=== PATIENT | female | born 1975 | race Caucasian/White ===

== ENCOUNTER 2016-12-21 22:18 | Emergency (ER) | payer MEDICARE, MEDICAID ==
[~2016-12-21] VITALS: Ht 167.6 cm; Wt 163.3 kg
[~2016-12-21 22:18] MED LIST: ASPI-983 PO; ATOR20TA66 PO; HYDR-3812 PO; LISI-552 PO; METF500T4 PO
[2016-12-22] LABS: BILIRUBIN,URINE NEGATIVE (NEGATIVE); KETONES,URINE NEGATIVE (NEGATIVE); LEUKOCYTE ESTERASE ,URINE 2+ (NEGATIVE); NITRITE,URINE NEGATIVE (NEGATIVE); PH,URINE 5 (5-9); PROTEIN,URINE NEGATIVE (NEGATIVE); UROBILINOGEN,URINE NORMAL (NORMAL)
[2016-12-22 00:09] LABS: WBC,URINE 0-2 /HPF
[2016-12-22] MEDS ORDERED: KETOROLAC 30 MG/ML VIAL IVP STA (00:10)
[2016-12-22] MEDS ORDERED: ONDANSETRON 4 MG/2 ML (SDV) Z0FRAN IVP ONE (00:15)
[2016-12-22] MEDS ORDERED: PANTOPRAZOLE 40 MG/10 ML (PROTONIX) VIAL IV ONE (00:15)
[2016-12-22 00:31] LABS: BASOPHILS # (AUTO) 0.1 10^3/uL (0.0-0.1); BASOPHILS % (AUTO) 1 % (0-10); EOSINOPHILS # (AUTO) 0.7 10^3/uL (0.0-0.3); EOSINOPHILS % (AUTO) 6 % (0-10); LYMPHOCYTES # (AUTO) 4.5 X 10^3 (1.0-4.0); LYMPHOCYTES % (AUTO) 39 % (12-44); MEAN CORPUSCULAR HEMOGLOBIN 28 PG (25-34); MEAN CORPUSCULAR HGB CONC 33 G/DL (32-36); MEAN CORPUSCULAR VOLUME 84 FL (80-99); MEAN PLATELET VOLUME 9.8 FL (7.4-10.4); MONOCYTES % (AUTO) 9 % (0-12); NEUTROPHILS # (AUTO) 5.2 X 10^3 (1.8-7.8); NEUTROPHILS % (AUTO) 45 % (42-75); PLATELET COUNT 381 10^3/uL (130-400); RED BLOOD COUNT 4.69 10^6/uL (4.35-5.85); RED CELL DISTRIBUTION WIDTH 14.4 % (10.0-14.5); WHITE BLOOD COUNT 11.5 10^3/uL (4.3-11.0)
[2016-12-22 00:52] LABS: ALANINE AMINOTRANSFERASE 16 U/L (0-55); ALBUMIN 3.7 G/DL (3.2-4.5); AMYLASE 46 U/L (25-125); ANION GAP 10 MMOL/L (5-14); ASPARTATE AMINO TRANSFERASE 15 U/L (5-34); BILIRUBIN,TOTAL 0.3 MG/DL (0.1-1.0); BLOOD UREA NITROGEN 9 MG/DL (7-18); BUN/CREATININE RATIO 11; CALCIUM 9.4 MG/DL (8.5-10.1); CARBON DIOXIDE 22 MMOL/L (21-32); CHLORIDE 107 MMOL/L (98-107); CREATININE SERUM 0.85 MG/DL (0.60-1.30); GFR ESTIMATED > 60; GLUCOSE 110 MG/DL (70-105); LIPASE 33 U/L (8-78); POTASSIUM 4.1 MMOL/L (3.6-5.0); SODIUM 139 MMOL/L (135-145); TOTAL PROTEIN 6.9 G/DL (6.4-8.2)
[2016-12-22] MEDS ORDERED: PANT40TA2 PO (01:01)
[2016-12-22] MEDS ORDERED: ONDA4TAB8 PO (01:01)
[2016-12-22] MEDS ORDERED: HYOS0.1283 SL (01:01)
[2016-12-22] MEDS ORDERED: KETO10TA PO (01:01)
--- NOTE | 2016-12-22 01:01 | ED Abdominal Pain ---
General Chief Complaint: Abdominal/GI Problems Stated Complaint: ABD AND BACK PAIN Nursing Triage Note: PT TO ED 10 W/ S.O. FOR C/O BACK ET UPPER ABD PAIN ONSET X3YRS, WORSE THIS WEEK. REPORTS SHE HAS AN APPT W/ DR DE LA FUENTE BUT STATES SHE DOESN'T THINK SHE CAN WAIT. THIS IS PTS SECOND VISIT TO A [facility]. REPORTS SHE WENT TO [facility] BUT THOUGHT IS WAS "WEIRD" SO SHE DIDN'T STAY Sepsis Screen: No Definite Risk Source of Information: Patient History of Present Illness Time Seen By Provider: 23:45 Initial Comments C/O DIFFUSE UPPER ABDOMEN AND UPPER BACK PAIN--ONGOING FOR A FEW YEARS, AND IS GRADUALLY GETTING WORSE PAIN MOVES AROUND ALL ACROSS UPPER ABDOMEN AND BACK HAS ALOT OF BURNING IN EPIGASTRIC AND HAS INTERMITTENT CRAMPING IN UPPER ABDOMEN AND BACK + NAUSEA, NO VOMITING SLIGHT DIARRHEA OFF AND ON NO FEVER NO NEW URINARY SYMPTOMS--HAS CHRONIC PRESSURE AND URGENCY SYMPTOMS ARE WORSENED BY FOOD--ATE SCRAMBLED EGGS THIS AM, AND HAD A BURGER TONIGHT--STATES IT WAS ALREADY HURTING BEFORE SHE ATE, THEN GOT WORSE. ATE BURGER JUST PRIOR TO ARRIVAL ALSO WORSENED BY MOVEMENTS OR STANDING TOO LONG LMP . NO CONTROL. STATES SHE WENT TO [facility] 10/29/16 FOR THIS PROBLEM AND HAD LAB AND ULTRASOUND WHICH SHOWED GALLSTONES. SHE SAW OSIEL PETERSON IN FOLLOW UP 2 WEEKS AGO AND WAS REFERRED TO DR. DE LA FUENTE HAD AN APPOINTMENT LAST WEEK, BUT WAS CANCELLED BY DR. DE LA FUENTE'S OFFICE. PT HAS RESCHEDULED THE APPOINTMENT FOR Saturday12/24/16 PT HAS TAKEN IBUPROFEN AT [facility] TONIGHT AND IT HELPED STATES THIS IS NOT ANY DIFFERENT THAN WHAT SHE HAS EXPERIENCED IN THE PAST. TOLD RN THAT SHE WENT TO [facility], BUT LEFT AMA/LWBS Allergies and Home Medications Allergies Coded Allergies: No Known Drug Allergies (Unverified , 04/12/16) Home Medications Aspirin 81 Mg Tablet. #30 (Reported) Atorvastatin Calcium 20 Mg Tablet #30 (Reported) Hydrocodone/Acetaminophen 1 Each Tablet #20 1 EACH PO Q4H PRN PRN PAIN Prescribed by: MIC MOTA on 04/12/161954 Hyoscyamine Sulfate 0.125 Mg Tab.subl #10 1-2 TAB SL Q4H Prescribed by: PALMER EMERY on 12/22/16100 Ketorolac Tromethamine 10 Mg Tablet #15 10 MG PO Q6H Prescribed by: PALMER MEERY on 12/22/16100 Lisinopril 20 Mg Tablet #30 (Reported) Metformin HCl 500 Mg Tablet #60 (Reported) Ondansetron 4 Mg Tab.rapdis #10 4 MG PO Q4H Prescribed by: PALMER EMERY on 12/22/16100 Pantoprazole Sodium 40 Mg Tablet.dr #15 40 MG PO DAILY Prescribed by: PALMER EMERY on 12/22/16100 Review of Systems Constitutional: no symptoms reported Respiratory: No Symptoms ReportedDenies Orthopnea, Denies Shortness of Air Cardiovascular: No Symptoms ReportedDenies Chest Pain Gastrointestinal: See HPI Abdominal Pain Diarrhea NauseaDenies Poor Appetite, Denies Poor Fluid Intake, Denies Vomiting Genitourinary: Other (CHRONIC PRESSURE AND URGENCY) Musculoskeletal: see HPI back pain Skin: no symptoms reported Psychiatric/Neurological: No Symptoms Reported Endocrine: No Symptoms Reported Hematologic/Lymphatic: No Symptoms Reported Past Pyltjdx-Wgxkbm-Nmswcn Hx Patient Social History Alcohol Use: Denies Use Recreational Drug Use: No Smoking Status: Current Everyday Smoker (1 PPD) Type Used: Cigarettes Recent Foreign Travel: No Contact w/Someone Who Travel: No Recent Infectious Disease Expo: No Recent Hopitalizations: No Seasonal Allergies Seasonal Allergies: No Surgeries HX 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) Surgeries: Bladder Surgery Respiratory Hx Respiratory Disorders: Yes (SARCOIDOSIS) Cardiovascular Hx Cardiac Disorders: Yes Cardiac Disorders: High Cholesterol, Hypertension Neurological Hx Neurological Disorders: No Reproductive System Hx Reproductive Disorders: No Genitourinary Hx Genitourinary Disorders: Yes Genitourinary Disorders: Bladder Infection, UTI (peds) Gastrointestinal Hx Gastrointestinal Disorders: No Musculoskeletal Hx Musculoskeletal Disorders: No Endocrine Hx Endocrine Disorders: Yes (MORBID OBESITY) Endocrine Disorders: Diabetes, Non-Insulin dep HEENT HX ENT Disorders: No Cancer Hx Cancer: No Psychosocial Hx Psychiatric Problems: No Integumentary HX Skin/Integumentary Disorder: Yes (SARCOIDOSIS) Physical Exam Vital Signs VS - Last 72 Hours, by Label 12/21/16 12/22/16 23:24 01:05 Temp 97.5 Pulse 85 79 Resp 20 20 B/P 140/86 Pulse Ox 99 99 O2 Delivery Room Air Capillary Refill : Less Than 3 Seconds General Appearance: no apparent distress obese (MORBODLY OBESE) Neck: normal inspection Respiratory: normal breath sounds no respiratory distress no accessory muscle use Cardiovascular: regular rate, rhythm no murmur Gastrointestinal: normal bowel sounds softNo guarding, No rebound, tenderness (DIFFUSE UPPER ABDOMINAL TENDERNESS. 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 no motor/sensory deficits alert normal mood/affect oriented x 3 Skin: normal color warm/dry Focused Exam Lactic Acid Level Laboratory Tests Test 12/22/16 00:20 Alanine Aminotransferase (ALT/SGPT) 16U/L (0-55) Albumin 3.7G/DL (3.2-4.5) Alkaline Phosphatase 69U/L (40-136) Amylase Level 46U/L (25-125) Anion Gap 10MMOL/L (5-14) Aspartate Amino Transf (AST/SGOT) 15U/L (5-34) BUN/Creatinine Ratio 11 Blood Urea Nitrogen 9MG/DL (7-18) Calcium Level 9.4MG/DL (8.5-10.1) Carbon Dioxide Level 22MMOL/L (21-32) Chloride Level 107MMOL/L (98-107) Creatinine 0.85MG/DL (0.60-1.30) Estimat Glomerular Filtration Rate > 60 Glucose Level 110MG/DL (70-105) H Lipase 33U/L (8-78) Potassium Level 4.1MMOL/L (3.6-5.0) Sodium Level 139MMOL/L (135-145) Total Bilirubin 0.3MG/DL (0.1-1.0) Total Protein 6.9G/DL (6.4-8.2) Progress/Results/Core Measures Results/Orders Lab Results Laboratory Tests Test 12/21/16 23:37 12/22/16 00:20 Range/Units Ur Tricyclic Antidepressants Screen NEGATIVE NEGATIVE Urine Amphetamines Screen NEGATIVE NEGATIVE Urine Bacteria TRACE /HPF Urine Barbiturates Screen NEGATIVE NEGATIVE Urine Benzodiazepines Screen NEGATIVE NEGATIVE Urine Bilirubin NEGATIVE NEGATIVE Urine Cannabinoids Screen NEGATIVE NEGATIVE Urine Casts NONE /LPF Urine Clarity CLEAR Urine Cocaine Screen NEGATIVE NEGATIVE Urine Color YELLOW Urine Crystals NONE /LPF Urine Culture Indicated NO Urine Glucose (UA) 2+ H NEGATIVE Urine Ketones NEGATIVE NEGATIVE Urine Leukocyte Esterase 2+ H NEGATIVE Urine Methadone Screen NEGATIVE NEGATIVE Urine Methamphetamines Screen NEGATIVE NEGATIVE Urine Mucus SMALL H /LPF Urine Nitrite NEGATIVE NEGATIVE Urine Opiates Screen NEGATIVE NEGATIVE Urine Oxycodone Screen NEGATIVE NEGATIVE Urine Phencyclidine Screen NEGATIVE NEGATIVE Urine Test NEGATIVE NEGATIVE Urine Propoxyphene Screen NEGATIVE NEGATIVE Urine Protein NEGATIVE NEGATIVE Urine RBC NONE /HPF Urine RBC (Auto) NEGATIVE NEGATIVE Urine Specific [place] 1.025 H 1.016-1.022 Urine Squamous Epithelial Cells 10-25 H /HPF Urine Urobilinogen NORMAL NORMAL MG/DL Urine WBC 0-2 /HPF Urine pH 5 5-9 Alanine Aminotransferase (ALT/SGPT) 16 0-55 U/L Albumin 3.7 3.2-4.5 G/DL Alkaline Phosphatase 69 40-136 U/L Amylase Level 46 25-125 U/L Anion Gap 10 5-14 MMOL/L Aspartate Amino Transf (AST/SGOT) 15 5-34 U/L BUN/Creatinine Ratio 11 Basophils # (Auto) 0.1 0.0-0.1 10^3/uL Basophils (%) (Auto) 1 0-10 % Blood Urea Nitrogen 9 7-18 MG/DL Calcium Level 9.4 8.5-10.1 MG/DL Carbon Dioxide Level 22 21-32 MMOL/L Chloride Level 107 98-107 MMOL/L Creatinine 0.85 0.60-1.30 MG/DL Eosinophils # (Auto) 0.7 H 0.0-0.3 10^3/uL Eosinophils (%) (Auto) 6 0-10 % Estimat Glomerular Filtration Rate > 60 Glucose Level 110 H 70-105 MG/DL Hematocrit 39 35-52 % Hemoglobin 13.1 11.5-16.0 G/DL Lipase 33 8-78 U/L Lymphocytes # (Auto) 4.5 H 1.0-4.0 X 10^3 Lymphocytes (%) (Auto) 39 12-44 % Mean Corpuscular Hemoglobin 28 25-34 PG Mean Corpuscular Hemoglobin Concent 33 32-36 G/DL Mean Corpuscular Volume 84 80-99 FL Mean Platelet Volume 9.8 7.4-10.4 FL Monocytes # (Auto) 1.0 0.0-1.0 X 10^3 Monocytes (%) (Auto) 9 0-12 % Neutrophils # (Auto) 5.2 1.8-7.8 X 10^3 Neutrophils (%) (Auto) 45 42-75 % Platelet Count 381 130-400 10^3/uL Potassium Level 4.1 3.6-5.0 MMOL/L Red Blood Count 4.69 4.35-5.85 10^6/uL Red Cell Distribution Width 14.4 10.0-14.5 % Sodium Level 139 135-145 MMOL/L Total Bilirubin 0.3 0.1-1.0 MG/DL Total Protein 6.9 6.4-8.2 G/DL White Blood Count 11.5 H 4.3-11.0 10^3/uL My Orders Orders-PALMER EMERY DO Drug Screen Stat (Urine) (12/21/16 23:44) Hcg,Qualitative Urine (12/21/16 23:44) Ua Culture If Indicated (12/21/16 23:44) Saline Lock/Iv-Start (12/22/16 00:10) Amylase (12/22/16 00:10) Cbc With Automated Diff (12/22/16 00:10) Comprehensive Metabolic Panel (12/22/16 00:10) Lipase (12/22/16 00:10) Ondansetron Injection (Zofran Injectio (12/22/16 00:15) Ketorolac Injection (Toradol Injection) (12/22/16 00:10) Pantoprazole Injection (Protonix Injecti (12/22/16 00:15) Medications Given in ED Current Medications Medications Dose Ordered Sig/Ra Route Start Time Stop Time Status Last Admin Dose Admin Ondansetron HCl 4 mg ONCE ONCE IVP 12/22/16 00:15 12/22/16 00:16 DC 12/22/16 00:23 4 MG Pantoprazole 40 mg ONCE ONCE IV 12/22/16 00:15 12/22/16 00:16 DC 12/22/16 00:24 40 MG Vital Signs/I&O Vital Sign - Last 12Hours 12/21/16 12/22/16 23:24 01:05 Temp 97.5 Pulse 85 79 Resp 20 20 B/P 140/86 Pulse Ox 99 99 O2 Delivery Room Air Blood Pressure Mean: 104 Progress Note : Progress Note ALL SYMPTOMS RESOLVED WITH MEDICATIONS Departure Impression Impression: Primary Impression: Upper abdominal pain Additional Impression: REPORTED HISTORY OF GALLSTONES Disposition: 01 HOME, SELF-CARE Condition: Improved Departure-Patient Inst. Referrals: REED PETERSON (PCP/Family) Primary Care Physician Patient Instructions: Acute Abdomen (Belly Pain), Adult (DC), Gallstones (DC) Add. Discharge Instructions: CLEAR LIQUIDS TOMORROW, NO FOOD. --WATER, BROTH, JELLO, GATORADE IF YOU ARE BETTER ON SATURDAY, YOU MAY ADD BRATS DIET TO CLEAR LIQUIDS--BANANAS, RICE, APPLESAUCE, TOAST, SALTINES KEEP YOUR APPOINTMENT WITH DR. DE LA FUENTE ON SATURDAY SCHEDULED All discharge instructions reviewed with patient and/or family. Voiced understanding. Scripts Ketorolac Tromethamine 10 Mg Fpvewf69 Mg PO Q6H Pain #15 TAB Prov:PALMER EMERY DO 12/22/16 Hyoscyamine Sulfate (Levsin-Sl)0.125 Mg Tab.subl1-2 Tab SL Q4H Abdominal Pain # 10 TAB Prov:PALMER EMERY DO 12/22/16 Pantoprazole Sodium (Protonix)40 Mg Tablet.dr40 Mg PO DAILY #15 TAB Prov:PALMER EMERY DO 12/22/16 Ondansetron (Zofran Odt)4 Mg Tab.rapdis4 Mg PO Q4H Nausea/Vomiting #10 TAB Prov:PALMER EMERY DO 12/22/16 PALMER EMERY DO Dec 22, 2016 01:01
[2016-12-22 01:05] VITALS: BP 131/88
== END 2016-12-22 01:05 | disposition home or self-care (01) ==
LOC: EDUNIT# 22:18 → ER 22:20
DX: R10.10 Upper abdominal pain, unspecified (principal); I10 Essential (primary) hypertension; E11.9 Type 2 diabetes mellitus without complications; E66.01 Morbid (severe) obesity due to excess calories; F17.210 Nicotine dependence, cigarettes, uncomplicated; Z79.82 Long term (current) use of aspirin; Z79.84 Long term (current) use of oral hypoglycemic drugs; Z79.899 Other long term (current) drug therapy
CPT/HCPCS: 36415; 80053; 80306; 81000; 82150; 83690; 84703; 85025; 96365; 96375

== ENCOUNTER 2016-12-26 05:37 | Outpatient (CLI) | payer MEDICARE, MEDICAID ==
[~2016-12-26] VITALS: Ht 167.6 cm; Wt 171.0 kg
[~2016-12-26 05:37] MED LIST changes: +HYOS0.1283 SL; +KETO10TA PO; +ONDA4TAB8 PO; +PANT40TA2 PO
[2016-12-28] MEDS ORDERED: HYDR-3812 PO (15:28)
[2016-12-28] MEDS ORDERED: DOCU-143 PO (15:28)
== END 2016-12-26 15:40 ==
LOC: PREOP 05:37
PROVIDERS: ATTEND Surgery
DX: Z01.818 Encounter for other preprocedural examination (principal); K80.20 Calculus of gallbladder without cholecystitis without obstruction

== ENCOUNTER 2016-12-28 11:38 | Day surgery (SDC) | payer MEDICARE, MEDICAID ==
[~2016-12-28] VITALS: Ht 167.6 cm; Wt 171.0 kg
[2016-12-28] MEDS: LACTATED RINGERS 1,000 ML IV PRN ×3 (12:00→16:11)
[2016-12-28] MEDS ORDERED: ceFAZolin 2 GM/NS 50 ML IV ONE (12:15)
[2016-12-28] MEDS ORDERED: ceFAZolin 1 GM/NS 50 ML IVPB IV ONE ×2 (12:15)
[2016-12-28 12:22] VITALS: BP 156/76
[2016-12-28] MEDS ORDERED: ceFAZolin INJECTION 3,000 MG in NS (IVPB) 100 ML IV ONE (12:30)
[2016-12-28] MEDS ORDERED: BUPIVACAINE 0.5% 30 ML (SENSORCAINE) VIAL ONE (12:44)
[2016-12-28] MEDS ORDERED: LIDOCAINE 1% INJ 20 ML (XYLOCAINE) VIAL ONE (12:44)
--- NOTE | 2016-12-28 13:05 | Progress Note-Pre Operative ---
Pre-Operative Progress Note H&P Reviewed The H&P was reviewed, patient examined and no changes noted. Date H&P Reviewed: Dec 28, 2016 Time H&P Reviewed: 13:05 Pre-Operative Diagnosis: SYMPTOMATIC CHOLELITHIASIS MELODY DE LA FUENTE DO Dec 28, 2016 13:05
[2016-12-28] MEDS ORDERED: LIDOCAINE PF 2% 10 ML (XYLOCAINE) AMP ONE (13:07)
[2016-12-28] MEDS ORDERED: ROCURONIUM 50 MG/5 ML (ZEMURON) VIAL IV ONE ×2 (13:07→13:52)
[2016-12-28] MEDS ORDERED: ONDANSETRON 4 MG/2 ML (SDV) Z0FRAN ONE ×2 (13:07→16:02)
[2016-12-28] MEDS ORDERED: LACTATED RINGERS 1,000 ML IV ONE ×3 (13:07→16:08)
[2016-12-28] MEDS ORDERED: proPOfol 200 MG/20 ML (DIPRIVAN) VIAL IV ONE (13:07)
[2016-12-28] MEDS ORDERED: SUCCINYLCHOLINE INJ 100 MG/5 ML SYR ONE (13:07)
[2016-12-28] MEDS ORDERED: fentaNYL INJECTION 100 MCG/2 ML AMP ONE ×2 (13:08→15:28)
[2016-12-28] MEDS ORDERED: MIDAZOLAM 2 MG/2 ML (VERSED) VIAL ONE (13:08)
[2016-12-28] MEDS ORDERED: SEVOFLURANE (ULTANE) 15 ML INHAL SOLN ONE ×4 (14:18→15:42)
[2016-12-28] MEDS ORDERED: morphine INJ 10 MG/ML 1ML (SYR OR VIAL) ONE (14:43)
[2016-12-28] MEDS ORDERED: NEOSTIGMINE (BLOXIVERZ ) 1 MG/1ML 10 ML VIAL ONE (15:04)
[2016-12-28] MEDS ORDERED: GLYCOPYRROLATE 0.2 MG/ML (ROBINUL) 2 ML VIAL ONE (15:04)
--- NOTE | 2016-12-28 15:12 | Diagnostic Imaging Report ---
Indication: Right upper quadrant pain. Discussion: Fluoroscopic support was provided during intraoperative cholangiogram. There is progression of contrast into the duodenum. The common bile duct is not dilated. Please see the operative report for full detail. Fluoroscopy time: 17 seconds. Contrast: 5 mL Omnipaque 300. Impression: 1. Intraoperative cholangiogram. Dictated by: Dictated on workstation # [id number]
[2016-12-28] MEDS ORDERED: KETOROLAC 30 MG/ML VIAL ONE (15:22)
[2016-12-28] MEDS ORDERED: HYDR-3812 PO (15:28)
[2016-12-28] MEDS ORDERED: DOCU-143 PO (15:28)
--- NOTE | 2016-12-28 15:29 | Discharge Inst-Simple/Standard ---
Discharge Inst-Standard Discharge Medications New, Converted or Re-Newed RX: RX on Chart Patient Instructions/Follow Up Plan of Care/Instructions/FU: 2 WEEKS SUDHAKAR Activity as Tolerated: No Discharge Diet: Regular Diet Other Inst to Patient Follow up Appt: Make appointment for 2 weeks. Instructions: No lifting greater than 10 pounds. No strenuous activity. May shower in 24 hours, no tub bath or soaking. Use incentive spirometer at home as directed. No Smoking Skin/Wound Care: May remove bandages 24 HOURS. You need to leave the white strips over incision on they will fall off on their own. Symptoms to Report: Appetite Changes, Extremity Discoloration, Numbness/Tingling, Swelling Increased , Bleeding Excessive, Eyesight Changes, Pain Increased, Urine Color Change, Constipation(Persistent), Fever over 101 degree F, Pain/Pressure in chest, Urinating Difficulty, Cough Up/Vomit Blood, Heart Beat Irreg/Pounding, Pain/ Pressure in jaw, Vaginal Bleeding Increase, Cramps in feet or legs, Lightheadedness, Pain/Pressure in shoulder, Diarrhea(Persistent), Memory Changes Suddenly, Questions/Concerns, Weight gain consecutive days, Dizziness/ Fainting, Nausea/Vomiting, Shortness of Breath, Weight gain over 2 pounds. If eyes or skin turn yellow notify physician. If questions or concerns contact your physician Or seek help at emergency department. MELODY DE LA FUENTE DO Dec 28, 2016 15:29
[2016-12-28] MEDS ORDERED: HYDROcodone/APAP 5 MG/325 MG (LORTAB) TAB PO PRN (15:30)
[2016-12-28] MEDS ORDERED: ONDANSETRON 4 MG/2 ML (SDV) Z0FRAN IVP PRN (15:45)
[2016-12-28] MEDS ORDERED: MEPERIDINE (DEMEROL) INJ 50 MG/ML IVP PRN (15:45)
[2016-12-28 15:50] VITALS: BP 106/57
[2016-12-28] MEDS ORDERED: RT-ALBUTEROL SULF 2.5 MG/3 ML PRE-MIX VIAL ONE (15:56)
[2016-12-28] MEDS: morphine INJ 10 MG/ML 1ML (SYR OR VIAL) IVP PRN ×3 (15:57→16:17)
[2016-12-28] MEDS ORDERED: RT-ALBUTEROL SULF 2.5 MG/3 ML PRE-MIX VIAL INH ONE (16:15)
[2016-12-28 17:17] VITALS: BP 109/55
[2016-12-28 18:00] VITALS: BP 109/55
--- OUTSIDE RECORDS SUMMARY | 2016-12-30 12:31 | XMS REPORT ---
Author Author REED PETERSON [facility] eClinicalWorks Address Unknown Phone Unavailable Care Team Providers Care Sandwich Machine Operator Name Role Phone REED PETERSON CP Unavailable Allergies, Adverse Reactions, Alerts Substance Reaction Event Type N.K.D.A. Info Not Available Non Drug Allergy Problems Problem Type Condition Code Onset Dates Condition Status Problem Encounter for dental examination Z01.20 Active Problem Type 2 diabetes mellitus without complication E11.9 Active Problem Bilateral carpal tunnel syndrome G56.03 Active Assessment Type 2 diabetes mellitus without complication E11.9 Active Assessment Bilateral carpal tunnel syndrome G56.03 Active Problem Essential hypertension, hypertension with unspecified goal I10 Active Problem Arthritis M19.90 Active Medications Medication Code System Code Instructions Start Date End Date Status Dosage ProAir HFA [facility] [address]-05 108 (90 Base) MCG/ACT Inhalation every 4 hrs 2 puffs as needed Lipitor [facility] [address]-04 20 mg Orally Once a day 1 tablet Naproxen [facility] [address]-54 500 MG Orally every 12 hrs Jul 24, 2016 1 tablet as needed Lisinopril [facility] [address]-72 20 mg Orally Once a day 1 tablet Test strips [facility] 0 ... Once a day January 11, 2016 as directed Aspirin EC [facility] [id number] 81 MG TAKE ONE (1) TABLET BY MOUTH DAILY... Nasonex [facility] 97866951815 50 MCG/ACT 2 sprays in each nostril Once a day Nasally Metformin HCl [facility] [address]-21 500 MG Orally Twice a day 1 tablet with meals Procedures Procedure Coding System Code Date [facility] VISIT ESTABLISHED PATIENT CPT-4 G0467 Jul 24, 2016 Office Visit, Est Pt., Level 3 CPT-4 63862 Jul 24, 2016 GLYCATED HEMOGLOBIN TEST CPT-4 47538 Jul 24, 2016 Vital Signs Date/Time: Jul 24, 2016 Cardiac Monitoring Heart Rate 80 bpm Weight 354 lbs Height 66 in BMI 57.13 Index Blood Pressure Diastolic 78 mmHg Blood Pressure Systolic 128 mmHg Results Name Result Date Reference Range Unit Abnormality Flag A1C (IN HOUSE) ----A1C IN HOUSE 6.0 20160724 4.3 - 5.6 % ----Previous A1c 6.1 [id number] ----Lot [id number] ----Exp date [id number] Summary Purpose eClinicalWorks Submission
--- OUTSIDE RECORDS SUMMARY | 2016-12-30 12:31 | XMS REPORT ---
Author Author REED PETERSON Organization eClinicalWorks Address Unknown Phone Unavailable Care Team Providers Care Resident Care Aid Name Role Phone REED PETERSON CP Unavailable Allergies No Known Allergies Problems Problem Type Condition Code Onset Dates Condition Status Problem Essential hypertension, hypertension with unspecified goal I10 Active Problem Arthritis M19.90 Active Problem Type 2 diabetes mellitus without complication E11.9 Active Medications No Known Medications Vital Signs Date/Time: January 20, 2016 Blood Pressure Diastolic 80 mmHg Blood Pressure Systolic 122 mmHg Height 66 in Results No Known Results Summary Purpose eClinicalWorks Submission
--- OUTSIDE RECORDS SUMMARY | 2016-12-30 12:31 | XMS REPORT ---
Author Author REED PETERSON Organization [employer] Address Unknown Phone Unavailable Care Team Providers Care Fireworks Maker Name Role Phone REED PETERSON CP Unavailable Allergies No Known Allergies Problems Problem Type Condition Code Onset Dates Condition Status Problem Type 2 diabetes mellitus without complication E11.9 Active Problem Essential hypertension, hypertension with unspecified goal I10 Active Problem Encounter for dental examination Z01.20 Active Problem Arthritis M19.90 Active Medications No Known Medications Results No Known Results Summary Purpose eClinicalWorks Submission
--- OUTSIDE RECORDS SUMMARY | 2016-12-30 12:32 | XMS REPORT ---
Author Author REED PETERSON Organization [employer] Address Unknown Phone Unavailable Care Team Providers Care Front End Java Developer Name Role Phone REED PETERSON CP Unavailable Allergies No Known Allergies Problems Problem Type Condition Code Onset Dates Condition Status Problem Type 2 diabetes mellitus without complication E11.9 Active Problem Essential hypertension, hypertension with unspecified goal I10 Active Problem Encounter for dental examination Z01.20 Active Problem Arthritis M19.90 Active Medications No Known Medications Vital Signs Date/Time: February 06, 2016 Blood Pressure Diastolic 60 mmHg Blood Pressure Systolic 100 mmHg Height 66 in Results No Known Results Summary Purpose eClinicalWorks Submission
--- OUTSIDE RECORDS SUMMARY | 2016-12-30 12:32 | XMS REPORT ---
Author Author RAINER CASTRO [facility] eClinicalWorks Address Unknown Phone Unavailable Care Team Providers Care Train Controller Name Role Phone RAINER CASTRO Unavailable Allergies No Known Allergies Problems Problem Type Condition Code Onset Dates Condition Status Problem Essential hypertension, hypertension with unspecified goal I10 Active Problem Arthritis M19.90 Active Problem Type 2 diabetes mellitus without complication E11.9 Active Medications No Known Medications Results No Known Results Summary Purpose eClinicalWorks Submission
--- OUTSIDE RECORDS SUMMARY | 2016-12-30 12:32 | XMS REPORT ---
Author Author REED PETERSON Organization eClinicalWorks Address Unknown Phone Unavailable Care Team Providers Care Control Operator Name Role Phone REED PETERSON CP Unavailable Allergies No Known Allergies Problems Problem Type Condition Code Onset Dates Condition Status Problem Essential hypertension, hypertension with unspecified goal I10 Active Problem Arthritis M19.90 Active Problem Type 2 diabetes mellitus without complication E11.9 Active Medications No Known Medications Vital Signs Date/Time: January 24, 2016 Blood Pressure Systolic 102 mmHg Weight 362.8 lbs Height 66 in BMI 58.55 Index Blood Pressure Diastolic 72 mmHg Results No Known Results Summary Purpose eClinicalWorks Submission
--- OUTSIDE RECORDS SUMMARY | 2016-12-30 12:32 | XMS REPORT ---
Author Author REED PETERSON Organization eClinical[employer] Address Unknown Phone Unavailable Care Team Providers Care Program Or Project Administrator Name Role Phone REED PETERSON CP Unavailable Allergies No Known Allergies Problems Problem Type Condition Code Onset Dates Condition Status Problem Type 2 diabetes mellitus without complication E11.9 Active Problem Essential hypertension, hypertension with unspecified goal I10 Active Problem Encounter for dental examination Z01.20 Active Problem Arthritis M19.90 Active Medications Medication Code System Code Instructions Start Date End Date Status Dosage Lipitor [facility] [address]-01 20 mg Orally Once a day 1 tablet Sprintec 28 [facility] [address]-13 0.25-35 MG-MCG Orally Once a day January 17, 2016 1 tablet Metformin HCl [facility] [address]-45 500 MG Orally Twice a day 1 tablet with meals Results No Known Results Summary Purpose eClinicalWorks Submission
--- NOTE | 2016-12-30 12:45 | OPERATIVE REPORT ---
PROCEDURE PHYSICIAN: MELODY DE LA FUENTE DATE OF PROCEDURE: 12/28/2016 PREOPERATIVE DIAGNOSIS: Symptomatic cholelithiasis. POSTOPERATIVE DIAGNOSIS: Symptomatic cholelithiasis. PROCEDURE: Laparoscopic cholecystectomy with intraoperative cholangiogram. SURGEON: Mena. AIRFIELD DEFENCE GUARD: Dr. Leiv, assist in retraction, dissection, and closure. ANESTHESIA: General. ESTIMATED BLOOD LOSS: Minimal. COMPLICATIONS: None. INDICATIONS: The patient is a 41-year-old female who has been having right upper quadrant abdominal pain. She had a gallbladder ultrasound demonstrating a large amount of gallstones. She understands the risks and benefits of the procedure and wishes to proceed with the procedure. She has a BMI of 60.8 kg per meter sq. The patient was taken to the operating suite. She was prepped and draped with sterile technique after general anesthesia and endotracheal tube placed. Timeout was performed. Allison technique was used to enter the abdomen just superior to the umbilicus. Cautery dissection was taken down to the fascia, which was then scored, grasped and elevated. An 0-Vicryl suture was placed in a [id number] fashion and the balloon trocar was placed. Pneumoperitoneum was achieved. Under direct visualization of the laparoscope, a 5 mm trocar was placed in the subxiphoid region and two 5-mm trocars were placed in the right upper quadrant. Due to body habitus and exposure a 3rd 5 mm trocar had to be placed in the right upper quadrant to assist further assist with retraction. There were some adhesions to the gallbladder which were taken down with a [place]. The cystic duct and cystic artery were then began to be dissected out. Once the cystic duct was dissected out a clip was placed on the distal portion of the cystic duct and this was then partially transected. An arrow catheter was inserted and cholangiogram was then performed. There were no filling defects. There were no stones within the duct. The duct was a small diameter. The catheter was removed. Clips were placed on proximal portion. This was then transected. The cystic artery was further dissected out. Clips were placed on proximal and distal portion and this was then transected. Hook cautery was then used to dissect out the gallbladder from the gallbladder fossa which was fairly intrahepatic gallbladder. Once removed, it was placed in an Endobag and removed through the 12 mm trocar. Hemostasis had been achieved. Copious amounts of irrigation were used to irrigate the abdomen. There was still a little bit of a defect at the umbilical incision; therefore, an Endo Close with 0 Vicryl were then used to further close this. Once closed, all the incisions were irrigated and then the skin was closed using 4-0 Monocryl in a subcuticular fashion. The area was then washed and dried and Mastisol and Steri-Strips were applied. Sterile bandages were applied. The patient tolerated the procedure well without complication. She was taken to recovery room in stable condition Job ID: [id number] Dictated Date: 12/28/2016 16:22:45 Worm Raiser Date: 12/30/2016 12:33:43 / phuc
== END 2016-12-28 18:04 | disposition home or self-care (01) ==
LOC: DELPENDDIS → SDC 11:38 → DELPENDDIS 17:30 → SDC 18:04
PROVIDERS: ATTEND Surgery
DX: K80.10 Calculus of gallbladder with chronic cholecystitis without obstruction (principal)
CPT/HCPCS: 82962; 84703; 87081; 88304; 88305; 94664

== ENCOUNTER 2018-02-16 14:16 | Emergency (ER) | payer MEDICARE, MEDICAID ==
[~2018-02-16] VITALS: Ht 167.6 cm; Wt 181.4 kg
[~2018-02-16 14:16] MED LIST changes: +ACHD5005 PO; +DOCU-143 PO; -HYDR-3812 PO; -METF500T4 PO; +METF500T5 PO
--- OUTSIDE RECORDS SUMMARY | 2018-02-16 14:22 | XMS REPORT ---
Author Author REED PETERSON Organization [facility] Address [address] [place] [address] Care Team Providers Care It Audit Manager Name Role Phone REED PETERSON Unavailable PROBLEMS Type Condition ICD9-CM Code GBN99-GY Code Onset Dates Condition Status SNOMED Code Problem 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 Active 52914316 Problem Sciatica of left side M54.32 Active 55970623 Problem Dyspepsia R10.13 Active 579327097 Problem Type 2 diabetes mellitus without complication E11.9 Active 75506948 Problem Arthritis M19.90 Active 0526029 Problem Essential hypertension, hypertension with unspecified goal I10 Active 02659373 Problem Bilateral carpal tunnel syndrome G56.03 Active 43312271 Problem Mild persistent asthma without complication J45.30 Active 711142158 Problem Mild intermittent asthma with acute exacerbation J45.21 Active 528342785 Problem Body mass index (BMI) of 45.0-49.9 in adult Z68.42 Active 745362648 Problem Constipation, unspecified constipation type K59.00 Active 16745240 Problem Morbid (severe) obesity due to excess calories E66.01 Active 877589029 Problem Comprehensive diabetic foot examination, type 2 DM, encounter for E11.9 Active 34919004 ALLERGIES No Information ENCOUNTERS Encounter Location Date Diagnosis [address] [id number] [id number] Dec, BMI 60.0-69.9, adult Z68.[address] [id number] [id number] Dec, [place] [id number] [place] [address] [id number] Dec, Type 2 diabetes mellitus without complication E11.9 ; Mild persistent asthma without complication J45.30 ; Essential hypertension, hypertension with unspecified goal I10 ; Acute nasopharyngitis J00 ; Left lower quadrant pain R10.32 ; Dyspepsia R10.13 and BMI 60.0-69.9, adult Z68.44 [place] [id number] [place] [address] [id number] Dec, Sciatica of left side M54.32 [facility] [address] [id number] 15 Sep, 2017 BMI 60.0-69.9, adult Z68.44 ; Asthma, unspecified asthma severity, unspecified whether complicated, unspecified whether persistent J45.909 ; Other viral agents as the cause of diseases classified elsewhere B97.89 and Acute upper respiratory infection, unspecified J06.9 [place] [id number] [place] [address] [id number] Sep, Type 2 diabetes mellitus without complication E11.9 ; Acute nasopharyngitis J00 ; Mild intermittent asthma with acute exacerbation J45.21 and BMI 60.0-69.9, adult Z68.44 [place] [id number] [place] [address] [id number] Aug, Sciatica of left side M54.32 [place] [id number] [place] [address] [id number] Jul, Left lower quadrant pain R10.[address] [id number] Jul, test negative Z32.02 [place] [id number] [place] [address] [id number] Jul, Left lower quadrant pain R10.32 [place] [id number] [place] [address] [id number] Jul, Mild intermittent asthma without complication J45.20 [place] [id number] [place] [address] [id number] Jul, Dyspepsia R10.13 ; Comprehensive diabetic foot examination, type 2 DM, encounter for E11.9 ; Pain of upper abdomen R10.10 ; Body mass index (BMI) of 45.0-49.9 in adult Z68.42 and Morbid (severe) obesity due to excess calories E66.01 [place] [address] [place] [address] [id number] Jun, Left upper quadrant pain R10.12 ; Constipation, unspecified constipation type K59.00 ; Plantar fasciitis of right foot M72.2 and Type 2 diabetes mellitus without complication E11.9 [facility] [id number] [place] [address] [id number] May, Type 2 diabetes mellitus without complication E11.9 ; Dyspepsia R10.13 and Sciatica of left side M54.32 [facility] [id number] [place] [address] [id number] Jan, Type 2 diabetes mellitus without complication E11.9 ; Dyspepsia R10.13 and Acute cystitis with hematuria N30.01 [facility] [address] [id number] Jan, [facility] [address] [id number] [place] [address] [id number] Jan, [place] [id number] [place] [address] [id number] Dec, [address] [id number] Dec, 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 and Type 2 diabetes mellitus without complication E11.9 [facility] [id number] [place] [address] [id number] Nov, [place] [address] [id number] [place] [address] [id number] Oct, [facility] [id number] [place] [address] [id number] Jul, Type 2 diabetes mellitus without complication E11.9 and Bilateral carpal tunnel syndrome G56.03 [facility] [id number] [place] [address] [id number] May, [address] [id number] Mar, Type 2 diabetes mellitus without complication E11.9 ; Essential hypertension, hypertension with unspecified goal I10 and Arthritis M19.90 [facility] [id number] [place] [address] [id number] February, Essential hypertension, hypertension with unspecified goal I10 and Type 2 diabetes mellitus without complication E11.9 [facility] [address] [id number] February, [facility] [id number] [place] [address] [id number] February, [facility] [address] [id number] Jan, Encounter for dental examination Z01.20 [facility] [id number] [place] [phone] Jan, [place] [id number] [place] [address] [id number] Jan, [place] [id number] [place] [address] [id number] Jan, [facility] [id number] [place] [phone] Jan, [facility] [id number] [place] [address] [id number] Jan, Well woman exam Z01.419 ; Urgency of urination R39.15 ; Urinary incontinence R32 ; Fungal infection of skin B36.9 ; Seasonal allergies J30.2 ; Contraceptive management Z30.9 and Morbid obesity E66.01 [address] [place] [address] [id number] Jan, Type 2 diabetes mellitus without complication E11.9 and Essential hypertension, hypertension with unspecified goal I10 [address] [place] [address] [id number] Jan, Type 2 diabetes mellitus without complication E11.9 ; Essential hypertension, hypertension with unspecified goal I10 ; Arthritis M19.90 and Mild intermittent asthma without complication J45.20 IMMUNIZATIONS No Known Immunizations SOCIAL HISTORY Never Assessed REASON FOR VISIT test (walk-in) PLAN OF CARE VITAL SIGNS MEDICATIONS Unknown Medications RESULTS Name Result Date Reference Range TEST, URINE (IN HOUSE) 2017-07-17 RESULTS negative Lot # [id number] Control positive Exp date 07/06/18 PROCEDURES Procedure Date Ordered Result Body Site URINE TEST Jul 17, 2017 INSTRUCTIONS MEDICATIONS ADMINISTERED No Known Medications MEDICAL (GENERAL) HISTORY Type Description Date Medical History hypertension Medical History type II diabetes Medical History hyperlipidemia Medical History Arthritis Medical History sarcoidoisis dx 2008 Medical History asthma Medical History depression Medical History hypoxemia 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
--- OUTSIDE RECORDS SUMMARY | 2018-02-16 14:22 | XMS REPORT ---
Author Author SIVLIA EDWARDS Organization [facility] Address [address] [place] [address] Care Team Providers Care Power Regulator Name Role Phone GRACE SILVIA Unavailable PROBLEMS Type Condition ICD9-CM Code [id number] Code Onset Dates Condition Status SNOMED Code Problem 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 Active 63840738 Problem Sciatica of left side M54.32 Active 98102162 Problem Dyspepsia R10.13 Active 511416939 Problem Type 2 diabetes mellitus without complication E11.9 Active 52895913 Problem Arthritis M19.90 Active 0995058 Problem Essential hypertension, hypertension with unspecified goal I10 Active 96994960 Problem Bilateral carpal tunnel syndrome G56.03 Active 57314761 Problem Mild persistent asthma without complication J45.30 Active 974432053 Problem Mild intermittent asthma with acute exacerbation J45.21 Active 910655790 Problem Body mass index (BMI) of 45.0-49.9 in adult Z68.42 Active 658334189 Problem Constipation, unspecified constipation type K59.00 Active 76728578 Problem Morbid (severe) obesity due to excess calories E66.01 Active 309923020 Problem Comprehensive diabetic foot examination, type 2 DM, encounter for E11.9 Active 51574583 ALLERGIES No Known Allergies ENCOUNTERS Encounter Location Date Diagnosis [facility] [address] [facility] [id number] [id number] Dec, BMI 60.0-69.9, adult Z68.44 [facility] [address] [facility] [id number] [place] [id number] Dec, [facility] [address] [place] [id number] [id number] Dec, Type 2 diabetes mellitus without complication E11.9 ; Mild persistent asthma without complication J45.30 ; Essential hypertension, hypertension with unspecified goal I10 ; Acute nasopharyngitis J00 ; Left lower quadrant pain R10.32 ; Dyspepsia R10.13 and BMI 60.0-69.9, adult Z68.[address] [id number] Dec, Sciatica of left side M54.[address] [id number] Sep, BMI 60.0-69.9, adult Z68.44 ; Asthma, unspecified asthma severity, unspecified whether complicated, unspecified whether persistent J45.909 ; Other viral agents as the cause of diseases classified elsewhere B97.89 and Acute upper respiratory infection, unspecified J06.[address] [id number] Sep, Type 2 diabetes mellitus without complication E11.9 ; Acute nasopharyngitis J00 ; Mild intermittent asthma with acute exacerbation J45.21 and BMI 60.0-69.9, adult Z68.[address] [id number] Aug, Sciatica of left side M54.[address] [id number] Jul, Left lower quadrant pain R10.[address] [id number] Jul, test negative Z32.[address] [id number] Jul, Left lower quadrant pain R10.[address] [id number] Jul, Mild intermittent asthma without complication J45.[address] [id number] Jul, Dyspepsia R10.13 ; Comprehensive diabetic foot examination, type 2 DM, encounter for E11.9 ; Pain of upper abdomen R10.10 ; Body mass index (BMI) of 45.0-49.9 in adult Z68.42 and Morbid (severe) obesity due to excess calories E66.01 [facility] [address] [place] [id number] [place] [address] [id number] Jun, Left upper quadrant pain R10.12 ; Constipation, unspecified constipation type K59.00 ; Plantar fasciitis of right foot M72.2 and Type 2 diabetes mellitus without complication E11.9 [facility] [id number] [place] [address] [id number] May, Type 2 diabetes mellitus without complication E11.9 ; Dyspepsia R10.13 and Sciatica of left side M54.32 [facility] [id number] [place] [address] [id number] Jan, Type 2 diabetes mellitus without complication E11.9 ; Dyspepsia R10.13 and Acute cystitis with hematuria N30.01 [facility] [id number] [place] [address] [id number] Jan, [facility] [id number] [place] [address] [id number] Jan, [facility] [id number] [place] [address] [id number] Dec, [facility] [address] [id number] Dec, 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 and Type 2 diabetes mellitus without complication E11.9 [facility] [id number] [place] [address] [id number] Nov, [facility] [id number] [place] [address] [id number] Oct, [facility] [id number] [place] [address] [id number] Jul, Type 2 diabetes mellitus without complication E11.9 and Bilateral carpal tunnel syndrome G56.03 [facility] [id number] [place] [address] [id number] May, [facility] [address] [id number] Mar, Type 2 diabetes mellitus without complication E11.9 ; Essential hypertension, hypertension with unspecified goal I10 and Arthritis M19.90 [facility] [address] [place] [address], [place] [id number] February, Essential hypertension, hypertension with unspecified goal I10 and Type 2 diabetes mellitus without complication E11.9 [facility] [id number] [place] [address] [id number] February, [facility] [id number] [place] [address] [id number] February, [facility] [id number] [place] [address] [id number] Jan, Encounter for dental examination Z01.20 [facility] [address] [phone] Jan, [facility] [id number] [place] [address] [id number] Jan, [facility] [address] [id number] [place] [address] [id number] Jan, [facility] [address] [id number] Jan, [facility] [address] [id number] [place] [address] [id number] Jan, Well woman exam Z01.419 ; Urgency of urination R39.15 ; Urinary incontinence R32 ; Fungal infection of skin B36.9 ; Seasonal allergies J30.2 ; Contraceptive management Z30.9 and Morbid obesity E66.01 [facility] [id number] [place] [address] [id number] Jan, Type 2 diabetes mellitus without complication E11.9 and Essential hypertension, hypertension with unspecified goal I10 [facility] [id number] [place] [address] [id number] Jan, Type 2 diabetes mellitus without complication E11.9 ; Essential hypertension, hypertension with unspecified goal I10 ; Arthritis M19.90 and Mild intermittent asthma without complication J45.20 IMMUNIZATIONS No Known Immunizations SOCIAL HISTORY Never Assessed REASON FOR VISIT Diabetic Beatrize Jean-Claude Greene PLAN OF CARE Activity Details Follow Up keep appts as scheduled Reason: VITAL SIGNS Height 66 in 2017-07-11 Weight 291.6 lbs 2017-07-11 Temperature 96.8 degrees Fahrenheit 2017-07-11 Heart Rate 68 bpm 2017-07-11 Respiratory Rate 18 2017-07-11 BMI 47.06 kg/m2 2017-07-11 Blood pressure systolic 118 mmHg 2017-07-11 Blood pressure diastolic 70 mmHg 2017-07-11 MEDICATIONS Medication Instructions Dosage Frequency Start Date End Date Duration Status Lisinopril 20 mg Orally Once a day 1 tablet 24h Active Zantac 300 MG Orally Once a day 1 tablet at bedtime 24h Jan, 90 days Active Lipitor 20 mg Orally Once a day 1 tablet 24h Active Gabapentin 300 MG Orally Three times a day 1 capsule 1 tab qhs x 5 d then bid x 5 d then tid 8h May, Active True Metrix Blood Glucose Test - TEST BLOOD SUGAR ONCE DAILY DIRECTED. Active ProAir HFA 108 (90 Base) MCG/ACT Inhalation every 4 hrs 2 puffs as needed 4h Active Nasonex 50 MCG/ACT ADMINISTER (2) TWO SPRAYS INTO EACH NOSTRIL ONCE DAILY. Active Lancets - subcutaneously Once a day DX: E11.9 as directed Nov, 30 days Active True Metrix Meter - as directed Jun, Active Sprintec 28 0.25-35 MG-MCG Orally Once a day 1 tablet 24h 90 Active Diclofenac Sodium 50 mg Orally Three times a day 1 tablet with food or milk 8h May, Active Polyethylene Glycol 3350 - Orally Once a day 1 cap 24h Jun, Active Metformin HCl 500 MG Orally Twice a day 1 tablet with meals 12h Active Aspirin EC 81 MG TAKE ONE (1) TABLET BY MOUTH DAILY... 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
--- OUTSIDE RECORDS SUMMARY | 2018-02-16 14:23 | XMS REPORT ---
Author Author [facility]ERSON [facility] Address [address] [place] [address] Care Team Providers Care Bolter Helper Name Role Phone REED PETERSON Unavailable PROBLEMS Type Condition ICD9-CM Code [id number] Code Onset Dates Condition Status SNOMED Code Problem Encounter for dental examination Z01.20 Active 234383564 Problem 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 Active 44548745 Problem Bilateral carpal tunnel syndrome G56.03 Active 44513640 Problem Essential hypertension, hypertension with unspecified goal I10 Active 39533627 Problem Type 2 diabetes mellitus without complication E11.9 Active 74192133 Problem Arthritis M19.90 Active 3006461 Problem Morbid (severe) obesity due to excess calories E66.01 Active 398506502 Problem Comprehensive diabetic foot examination, type 2 DM, encounter for E11.9 Active 58898035 Problem Sciatica of left side M54.32 Active 45308371 Problem Dyspepsia R10.13 Active 139118289 Problem Body mass index (BMI) of 45.0-49.9 in adult Z68.42 Active 880669352 Problem Constipation, unspecified constipation type K59.00 Active 22479894 ALLERGIES No Known Allergies SOCIAL HISTORY Never Assessed PLAN OF CARE Activity Details Follow Up 3 Months Reason:dm VITAL SIGNS Height 66 in 2017-01-31 Weight 364.6 lbs 2017-01-31 Temperature 97.2 degrees Fahrenheit 2017-01-31 Heart Rate 72 bpm 2017-01-31 Respiratory Rate 18 2017-01-31 BMI 58.84 kg/m2 2017-01-31 Blood pressure systolic 128 mmHg 2017-01-31 Blood pressure diastolic 72 mmHg 2017-01-31 MEDICATIONS Medication Instructions Dosage Frequency Start Date End Date Duration Status Metformin HCl 500 MG Orally Twice a day 1 tablet with meals 12h Active Naproxen 500 MG Orally every 12 hrs 1 tablet as needed 12h 18 Jul, 2016 Active Nasonex 50 MCG/ACT ADMINISTER (2) TWO SPRAYS INTO EACH NOSTRIL ONCE DAILY. Active Macrobid 100 mg Orally every 12 hrs 1 capsule with food 12h Jan, February, 7 day(s) Active True Metrix Blood Glucose Test - TEST BLOOD SUGAR ONCE DAILY DIRECTED. Active Zantac 300 MG Orally Once a day 1 tablet at bedtime 24h Jan, Active Test strips ... as directed 24h Jan, Active Lipitor 20 mg Orally Once a day 1 tablet 24h Active Lancets - subcutaneously Once a day DX: E11.9 as directed Nov, 30 days Active ProAir HFA 108 (90 Base) MCG/ACT Inhalation every 4 hrs 2 puffs as needed 4h Active Aspirin EC 81 MG TAKE ONE (1) TABLET BY MOUTH DAILY... Active Lisinopril 20 mg Orally Once a day 1 tablet 24h Active RESULTS No Results PROCEDURES Procedure Date Ordered Result Body Site [facility] VISIT ESTABLISHED PATIENT January 31, 2017 URINALYSIS, AUTO, W/O SCOPE January 31, 2017 IMMUNIZATIONS No Known Immunizations MEDICAL (GENERAL) HISTORY Type Description Date Medical [...]
--- OUTSIDE RECORDS SUMMARY | 2018-02-16 14:23 | XMS REPORT ---
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 Active 93636671 Problem Sciatica of left side M54.32 Active 47100486 Problem Dyspepsia R10.13 Active 189752142 Problem Type 2 diabetes mellitus without complication E11.9 Active 08339557 Problem Arthritis M19.90 Active 0074057 Problem Essential hypertension, hypertension with unspecified goal I10 Active 22471272 Problem Bilateral carpal tunnel syndrome G56.03 Active 13347992 Problem Mild persistent asthma without complication J45.30 Active 493069794 Problem Mild intermittent asthma with acute exacerbation J45.21 Active 986269728 Problem Body mass index (BMI) of 45.0-49.9 in adult Z68.42 Active 566583986 Problem Constipation, unspecified constipation type K59.00 Active 23193047 Problem Morbid (severe) obesity due to excess calories E66.01 Active 509923445 Problem Comprehensive diabetic foot examination, type 2 DM, encounter for E11.9 Active 15248905 ALLERGIES No Known Allergies ENCOUNTERS Encounter Location Date Diagnosis [address] [id number] [id number] Dec, BMI 60.0-69.9, adult Z68.[address] [id number] [id number] Dec, [address] [id number] [id number] Dec, Type 2 diabetes mellitus without complication E11.9 ; Mild persistent asthma without complication J45.30 ; Essential hypertension, hypertension with unspecified goal I10 ; Acute nasopharyngitis J00 ; Left lower quadrant pain R10.32 ; Dyspepsia R10.13 and BMI 60.0-69.9, adult Z68.44 [place] [id number] [place] [address] [id number] Dec, Sciatica of left side M54.32 [facility] [place] [id number] [place] [address] [id number] 15 Sep, 2017 BMI 60.0-69.9, adult Z68.44 ; Asthma, unspecified asthma severity, unspecified whether complicated, unspecified whether persistent J45.909 ; Other viral agents as the cause of diseases classified elsewhere B97.89 and Acute upper respiratory infection, unspecified J06.9 [place] [id number] [place] [address] [id number] Sep, Type 2 diabetes mellitus without complication E11.9 ; Acute nasopharyngitis J00 ; Mild intermittent asthma with acute exacerbation J45.21 and BMI 60.0-69.9, adult Z68.44 [place] [id number] [place] [address] [id number] Aug, Sciatica of left side M54.32 [facility] [place] [id number] [place] [address] [id number] Jul, Left lower quadrant pain R10.32 [place] [id number] [place] [address] [id number] Jul, test negative Z32.02 [place] [id number] [place] [address] [id number] Jul, Left lower quadrant pain R10.32 [place] [id number] [place] [address] [id number] Jul, Mild intermittent asthma without complication J45.20 [place] [id number] [place] [address] [id number] Jul, Dyspepsia R10.13 ; Comprehensive diabetic foot examination, type 2 DM, encounter for E11.9 ; Pain of upper abdomen R10.10 ; Body mass index (BMI) of 45.0-49.9 in adult Z68.42 and Morbid (severe) obesity due to excess calories E66.01 [place] [id number] [place] [address] [id number] Jun, Left upper quadrant pain R10.12 ; Constipation, unspecified constipation type K59.00 ; Plantar fasciitis of right foot M72.2 and Type 2 diabetes mellitus without complication E11.9 [facility] [id number] [place] [address] [id number] May, Type 2 diabetes mellitus without complication E11.9 ; Dyspepsia R10.13 and Sciatica of left side M54.32 [facility] [id number] [place] [address] [id number] Jan, Type 2 diabetes mellitus without complication E11.9 ; Dyspepsia R10.13 and Acute cystitis with hematuria N30.01 [facility] [id number] [place] [address] [id number] Jan, [facility] [id number] [place] [address] [id number] Jan, [facility] [id number] [place] [address] [id number] Dec, [facility] [id number] [place] [address] [id number] Dec, 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 and Type 2 diabetes mellitus without complication E11.9 [facility] [id number] [place] [address] [id number] Nov, [facility] [id number] [place] [address] [id number] Oct, [facility] [id number] [place] [address] [id number] Jul, Type 2 diabetes mellitus without complication E11.9 and Bilateral carpal tunnel syndrome G56.03 [facility] [id number] [place] [address] [id number] May, [facility] [id number] [place] [address] [id number] Mar, Type 2 diabetes mellitus without complication E11.9 ; Essential hypertension, hypertension with unspecified goal I10 and Arthritis M19.90 [facility] [address] [id number] February, Essential hypertension, hypertension with unspecified goal I10 and Type 2 diabetes mellitus without complication E11.9 [facility] [id number] [place] [address] [id number] February, [facility] [id number] [place] [address] [id number] February, [facility] [address] [place] [address] [id number] Jan, Encounter for dental examination Z01.20 [facility] [address] [phone] Jan, [facility] [id number] [place] [address] [id number] Jan, [facility] [id number] [place] [address] [id number] Jan, [facility] [id number] [place] [id number] Jan, [facility] [id number] [place] [address] [id number] Jan, Well woman exam Z01.419 ; Urgency of urination R39.15 ; Urinary incontinence R32 ; Fungal infection of skin B36.9 ; Seasonal allergies J30.2 ; Contraceptive management Z30.9 and Morbid obesity E66.01 [facility] [address] [place] [address] [id number] Jan, Type 2 diabetes mellitus without complication E11.9 and Essential hypertension, hypertension with unspecified goal I10 [facility] [address] [place] [address] [id number] Jan, Type 2 diabetes mellitus without complication E11.9 ; Essential hypertension, hypertension with unspecified goal I10 ; Arthritis M19.90 and Mild intermittent asthma without complication J45.20 IMMUNIZATIONS No Known Immunizations SOCIAL HISTORY Never Assessed REASON FOR VISIT Abdominal pain, left side, right foot pain Karen CUEVAS PLAN OF CARE Activity Details Follow Up prn Reason: VITAL SIGNS Height 66 in 2017-06-19 Weight 386.0 lbs 2017-06-19 Temperature 96.1 degrees Fahrenheit 2017-06-19 Heart Rate 98 bpm 2017-06-19 Respiratory Rate 22 2017-06-19 BMI 62.30 kg/m2 2017-06-19 Blood pressure systolic 128 mmHg 2017-06-19 Blood pressure diastolic 68 mmHg 2017-06-19 MEDICATIONS Medication Instructions Dosage Frequency Start Date End Date Duration Status True Metrix Blood Glucose Test - TEST BLOOD SUGAR ONCE DAILY DIRECTED. Active True Metrix Meter - as directed Jun, Active Polyethylene Glycol 3350 - Orally Once a day 1 cap 24h Jun, Active Lancets - subcutaneously Once a day DX: E11.9 as directed Nov, 30 days Active Lisinopril 20 mg Orally Once a day 1 tablet 24h Active Diclofenac Sodium 50 mg Orally Three times a day 1 tablet with food or milk 8h May, Active Zantac 300 MG Orally Once a day 1 tablet at bedtime 24h Jan, Active Nasonex 50 MCG/ACT ADMINISTER (2) TWO SPRAYS INTO EACH NOSTRIL ONCE DAILY. Active Aspirin EC 81 MG TAKE ONE (1) TABLET BY MOUTH DAILY... Active Gabapentin 300 MG Orally Three times a day 1 capsule 1 tab qhs x 5 d then bid x 5 d then tid 8h May, Active ProAir HFA 108 (90 Base) MCG/ACT Inhalation every 4 hrs 2 puffs as needed 4h Active Metformin HCl 500 MG Orally Twice a day 1 tablet with meals 12h Active Lipitor 20 mg Orally Once a day 1 tablet 24h Active RESULTS No Results PROCEDURES Procedure Date Ordered Result Body [facility] Jun 19, 2017 VENIPCHARMAINE, ROUTINE* Jun 19, 2017 [facility] VISIT ESTABLISHED PATIENT Jun 19, 2017 INSTRUCTIONS MEDICATIONS ADMINISTERED No Known Medications [...]
--- OUTSIDE RECORDS SUMMARY | 2018-02-16 14:23 | XMS REPORT ---
Author Author REED PETERSON [facility] Address [address] [place] [address] Care Team Providers Care Business And Services Instructor Name Role Phone REED PETERSON Unavailable PROBLEMS Type Condition ICD9-CM Code [id number] Code Onset Dates Condition Status SNOMED Code Problem Essential hypertension, hypertension with unspecified goal I10 Active 48607009 Problem Arthritis M19.90 Active 0530101 Problem Type 2 diabetes mellitus without complication E11.9 Active 72259787 Problem Constipation, unspecified constipation type K59.00 Active 94474852 Problem Sciatica of left side M54.32 Active 51476587 Problem Bilateral carpal tunnel syndrome G56.03 Active 46742649 Problem Encounter for dental examination Z01.20 Active 201616271 Problem Dyspepsia R10.13 Active 312432046 Problem 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
--- OUTSIDE RECORDS SUMMARY | 2018-02-16 14:23 | XMS REPORT ---
Author Author REED PETERSON [facility] Address [address] [place] [address] Care Team Providers Care Warp Bleaching Vat Tender Name Role Phone REED PETERSON Unavailable PROBLEMS Type Condition ICD9-CM Code NMB04-NE Code Onset Dates Condition Status SNOMED Code Problem Type 2 diabetes mellitus without complication E11.9 Active 83682603 Problem Essential hypertension, hypertension with unspecified goal I10 Active 49772482 Problem Sciatica of left side M54.32 Active 73056073 Problem Dyspepsia R10.13 Active 393540805 Problem Encounter for dental examination Z01.20 Active 169065683 Problem Arthritis M19.90 Active 3919411 Problem 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
--- NOTE | 2018-02-16 15:55 | ED General ---
General Chief Complaint: General Problems/Pain Stated Complaint: FEVER,WEAKNESS Nursing Triage Note: Multiple complants. States that her legs have been hurting and has been suffering from "Keshav hoarses". Yesterday her heart rate was high- 101. Has had decreased energy and has been eating and drinking less. Believes she has had a fever but has not taken a temp. has been nauseated since last night and today with 8 episodes of diarrhea in the last 2 days. Also states that she has been going numb, even her tongue and she has a headache. Nursing Sepsis Screen: No Definite Risk Source of Information: Patient Exam Limitations: No Limitations History of Present Illness Date Seen by Provider: February 16, 2018 Time Seen by Provider: 15:53 Initial Comments To ER with a one-week history of slight cough, low-grade fevers, bilateral leg weakness, intermittent body aches in various parts of her body, tongue numbness Timing/Duration: 1 Week Severity: Moderate Associated Systoms: No Chest Pain; Cough; No Diaphoresis; Fever/Chills, Headaches, Malaise, Nausea/Vomiting Allergies and Home Medications Allergies Coded Allergies: No Known Drug Allergies (Unverified , 02/16/18) Home Medications Aspirin 81 Mg Tablet.dr, 81 MG PO DAILY, (Reported) Atorvastatin Calcium 20 Mg Tablet, 20 MG PO HS, (Reported) Docusate Sodium 100 Mg Capsule, 100 MG PO BID Prescribed by: MELODY DE LA FUENTE on 12/28/16 152 Hydrocodone Bit/Acetaminophen 1 Each Tablet, 1 TAB PO Q4H PRN Prescribed by: MELODY DE LA FUENTE on 12/28/16 152 Hyoscyamine Sulfate 0.125 Mg Tab.subl, 1-2 TAB SL Q4H Prescribed by: PALMER EMERY on 12/22/16100 Lisinopril 20 Mg Tablet, 20 MG PO DAILY, (Reported) Metformin HCl 500 Mg Tablet, 500 MG PO BID, (Reported) Ondansetron 4 Mg Tab.rapdis, 4 MG PO Q4H Prescribed by: PALMER EMERY on 12/22/16100 Pantoprazole Sodium 40 Mg Tablet.dr, 40 MG PO DAILY Prescribed by: PALMER EMERY on 12/22/16100 Patient Home Medication List Home Medication List Reviewed: Yes Review of Systems Constitutional: see HPI, chills, fever, weakness EENTM: see HPI Respiratory: see HPI, cough Cardiovascular: no symptoms reported Genitourinary: no symptoms reported Musculoskeletal: see HPI, muscle pain Skin: no symptoms reported Psychiatric/Neurological: No Symptoms Reported Hematologic/Lymphatic: No Symptoms Reported Immunological/Allergic: no symptoms reported Past Lpctzox-Rqsvri-Jfukcg Hx Patient Social History Alcohol Use: Denies Use Recreational Drug Use: No Smoking Status: Former Smoker Type Used: Cigarettes Former Smoker, Quit: Aug 07, 2017 2nd Hand Smoke Exposure: No Recent Foreign Travel: No Contact w/Someone Who Travel: No Recent Infectious Disease Expo: No Recent Hopitalizations: No Physical Abuse: No Sexual Abuse: No Mistreated: No Fear: No Seasonal Allergies Seasonal Allergies: Yes (sometimes) Past Medical History 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) Bladder Surgery, Gallbladder Respiratory: Yes (SARCOIDOSIS) Asthma, Sleep Apnea Currently Using CPAP: Yes (doesn't use) Cardiac: Yes High Cholesterol, Hypertension Neurological: No Reproductive Disorders: No Bladder Infection, UTI (peds) Gastrointestinal: No Gall Bladder Disease Musculoskeletal: No Endocrine: Yes (MORBID OBESITY) Diabetes, Non-Insulin dep Cancer: No Psychosocial: No Nursing Suicide Risk Score: 0 Integumentary: Yes (SARCOIDOSIS) Blood Disorders: No Physical Exam Vital Signs Vital Signs - First Documented 02/16/18 15:38 Temp 99.0 Pulse 100 Resp 18 B/P (MAP) 150/72 (98) Pulse Ox 97 Capillary Refill : Less Than 3 Seconds General Appearance: No Apparent Distress, WD/WN, Obese Eyes: Bilateral Eye Normal Inspection, Bilateral Eye PERRL, Bilateral Eye EOMI HEENT: PERRL/EOMI, TMs Normal Neck: Full Range of Motion, Normal Inspection Respiratory: Normal Breath Sounds, No Accessory Muscle Use, No Respiratory Distress Cardiovascular: Regular Rate, Rhythm, Normal Peripheral Pulses Gastrointestinal: Normal Bowel Sounds, Non Tender, Soft Extremity: Normal Capillary Refill, Normal Inspection Neurologic/Psychiatric: Alert, Oriented x3 Skin: Normal Color, Warm/Dry Progress/Results/Core Measures Suspected Sepsis Recent Fever Within 48 Hours: Yes Infection Criteria Present: None New/Unexplained Altered Menta: No Sepsis Screen: No Definite Risk SIRS Temperature:99.0 Pulse: 100 Respiratory Rate: 18 Laboratory Tests 02/16/18 16:15: White Blood Count 10.6 Blood Pressure 150 /72 Mean: 98 Laboratory Tests 02/16/18 16:15: Creatinine 0.83, Platelet Count 294, Total Bilirubin 0.7 Results/Orders Lab Results Laboratory Tests Test 02/16/18 16:15 02/16/18 17:40 Range/Units White Blood Count 10.6 4.3-11.0 10^3/uL Red Blood Count 4.38 4.35-5.85 10^6/uL Hemoglobin 11.8 11.5-16.0 G/DL Hematocrit 37 35-52 % Mean Corpuscular Volume 85 80-99 FL Mean Corpuscular Hemoglobin 27 25-34 PG Mean Corpuscular Hemoglobin Concent 32 32-36 G/DL Red Cell Distribution Width 15.2 H 10.0-14.5 % Platelet Count 294 130-400 10^3/uL Mean Platelet Volume 9.3 7.4-10.4 FL Neutrophils (%) (Auto) 81 H 42-75 % Lymphocytes (%) (Auto) 13 12-44 % Monocytes (%) (Auto) 6 0-12 % Eosinophils (%) (Auto) 0 0-10 % Basophils (%) (Auto) 0 0-10 % Neutrophils # (Auto) 8.5 H 1.8-7.8 X 10^3 Lymphocytes # (Auto) 1.4 1.0-4.0 X 10^3 Monocytes # (Auto) 0.7 0.0-1.0 X 10^3 Eosinophils # (Auto) 0.0 0.0-0.3 10^3/uL Basophils # (Auto) 0.0 0.0-0.1 10^3/uL Sodium Level 135 135-145 MMOL/L Potassium Level 3.6-5.0 MMOL/L Chloride Level 102 98-107 MMOL/L Carbon Dioxide Level 22 21-32 MMOL/L Anion Gap 11 5-14 MMOL/L Blood Urea Nitrogen 6 L 7-18 MG/DL Creatinine 0.83 0.60-1.30 MG/DL Estimat Glomerular Filtration Rate > 60 BUN/Creatinine Ratio 7 Glucose Level 108 H 70-105 MG/DL Calcium Level 8.8 8.5-10.1 MG/DL Total Bilirubin 0.7 0.1-1.0 MG/DL Aspartate Amino Transf (AST/SGOT) 21 5-34 U/L Alanine Aminotransferase (ALT/SGPT) 15 0-55 U/L Alkaline Phosphatase 70 40-136 U/L Total Protein 7.0 6.4-8.2 GM/DL Albumin 3.5 3.2-4.5 GM/DL Urine Color YELLOW Urine Clarity VERY CLOUDY H Urine pH 6.5 5-9 Urine Specific [place] 1.015 L 1.016-1.022 Urine Protein 2+ H NEGATIVE Urine Glucose (UA) NEGATIVE NEGATIVE Urine Ketones NEGATIVE NEGATIVE Urine Nitrite NEGATIVE NEGATIVE Urine Bilirubin NEGATIVE NEGATIVE Urine Urobilinogen NORMAL NORMAL MG/DL Urine Leukocyte Esterase 1+ H NEGATIVE Urine RBC (Auto) 5+ H NEGATIVE Urine RBC >100 H /HPF Urine WBC 2-5 /HPF Urine Squamous Epithelial Cells 2-5 /HPF Urine Crystals NONE /LPF Urine Bacteria TRACE /HPF Urine Casts NONE /LPF Urine Mucus NEGATIVE /LPF Urine Culture Indicated NO Micro Results Microbiology 02/16/18 Influenza Types A,B Antigen (SOFI) - Final, Complete My Orders Orders - CODY CANTRELL APRN Cbc With Automated Diff (02/16/18 15:50) Comprehensive Metabolic Panel (02/16/18 15:50) Ua Culture If Indicated (02/16/18 15:50) Urine Bedside (02/16/18 15:50) Iv Heplock-Insert (Order) (02/16/18 15:50) Ns Iv 1000 Ml (Sodium Chloride 0.9%) (02/16/18 16:00) Influenza A And B Antigens (02/16/18 16:51) Vital Signs/I&O 02/16/18 15:38 Temp 99.0 Pulse 100 Resp 18 B/P (MAP) 150/72 (98) Pulse Ox 97 Capillary Refill : Less Than 3 Seconds Blood Pressure Mean: 98 Departure Impression Primary Impression: General symptom Additional Impression: Viral syndrome Disposition: 01 HOME, SELF-CARE Condition: Stable Departure-Patient Inst. Decision time for Depature: 18:22 Referrals: SANTOS MORALES DO (PCP) Primary Care Physician REED PETERSON (Family) Primary Care Physician Patient Instructions: NO INSTRUCTIONS GIVEN Add. Discharge Instructions: 1. Follow-up with your doctor this week 2. Return to ER for any concerns All discharge instructions reviewed with patient and/or family. Voiced understanding. CODY CANTRELL APRN February 16, 2018 15:54
[2018-02-16] MEDS ORDERED: NS IV 1000 ML 1,000 ML IV SCH (16:00)
[2018-02-16 16:26] LABS: BASOPHILS % (AUTO) 0 % (0-10); EOSINOPHILS % (AUTO) 0 % (0-10); HEMATOCRIT 37 % (35-52); HEMOGLOBIN 11.8 G/DL (11.5-16.0); LYMPHOCYTES # (AUTO) 1.4 X 10^3 (1.0-4.0); LYMPHOCYTES % (AUTO) 13 % (12-44); MEAN CORPUSCULAR HEMOGLOBIN 27 PG (25-34); MEAN CORPUSCULAR HGB CONC 32 G/DL (32-36); MEAN CORPUSCULAR VOLUME 85 FL (80-99); MEAN PLATELET VOLUME 9.3 FL (7.4-10.4); MONOCYTES # (AUTO) 0.7 X 10^3 (0.0-1.0); MONOCYTES % (AUTO) 6 % (0-12); NEUTROPHILS # (AUTO) 8.5 X 10^3 (1.8-7.8); NEUTROPHILS % (AUTO) 81 % (42-75); PLATELET COUNT 294 10^3/uL (130-400); RED BLOOD COUNT 4.38 10^6/uL (4.35-5.85); RED CELL DISTRIBUTION WIDTH 15.2 % (10.0-14.5); WHITE BLOOD COUNT 10.6 10^3/uL (4.3-11.0)
[2018-02-16 16:42] LABS: ALANINE AMINOTRANSFERASE 15 U/L (0-55); ALBUMIN 3.5 GM/DL (3.2-4.5); ALKALINE PHOSPHATASE 70 U/L (40-136); BILIRUBIN,TOTAL 0.7 MG/DL (0.1-1.0); BUN/CREATININE RATIO 7; CALCIUM 8.8 MG/DL (8.5-10.1); CARBON DIOXIDE 22 MMOL/L (21-32); CHLORIDE 102 MMOL/L (98-107); CREATININE SERUM 0.83 MG/DL (0.60-1.30); GFR ESTIMATED > 60; GLUCOSE 108 MG/DL (70-105); SODIUM 135 MMOL/L (135-145)
[2018-02-16 17:47] LABS: BILIRUBIN,URINE NEGATIVE (NEGATIVE); CLARITY,URINE VERY CLOUDY; COLOR,URINE YELLOW; GLUCOSE, URINE (UA) NEGATIVE (NEGATIVE); KETONES,URINE NEGATIVE (NEGATIVE); LEUKOCYTE ESTERASE ,URINE 1+ (NEGATIVE); NITRITE,URINE NEGATIVE (NEGATIVE); PH,URINE 6.5 (5-9); PROTEIN,URINE 2+ (NEGATIVE); UROBILINOGEN,URINE NORMAL (NORMAL)
[2018-02-16 17:54] LABS: BACTERIA,URINE TRACE /HPF; RBC,URINE >100 /HPF
[2018-02-16] MEDS ORDERED: SULF1TAB35 PO (18:37)
[2018-02-16 18:51] VITALS: BP 150/72
== END 2018-02-16 18:36 | disposition home or self-care (01) ==
LOC: EDUNIT# 14:16 → ER 14:17
DX: M62.81 Muscle weakness (generalized) (principal); B34.9 Viral infection, unspecified; J45.909 Unspecified asthma, uncomplicated; G47.30 Sleep apnea, unspecified; E78.00 Pure hypercholesterolemia, unspecified; I10 Essential (primary) hypertension; E66.01 Morbid (severe) obesity due to excess calories; E11.9 Type 2 diabetes mellitus without complications; Z87.448 Personal history of other diseases of urinary system; Z68.44 Body mass index [BMI] 60.0-69.9, adult; Z87.440 Personal history of urinary (tract) infections; Z79.82 Long term (current) use of aspirin; Z79.84 Long term (current) use of oral hypoglycemic drugs; Z87.891 Personal history of nicotine dependence
CPT/HCPCS: 36415; 80053; 81000; 84703; 85025; 87804; 96360

== ENCOUNTER 2018-12-11 09:25 | Outpatient (RCR) | payer MEDICARE, MEDICAID ==
[~2018-12-11 09:25] MED LIST changes: +METF-397 PO; -METF500T5 PO; +SULF1TAB35 PO
[2019-01-09] MEDS ORDERED: BUDE10.2 PO (11:17)
[2019-01-09] MEDS ORDERED: GABA-490 PO (11:18)
[2019-01-09] MEDS ORDERED: RANI300T4 PO (11:18)
== END 2019-03-11 | disposition home or self-care (01) ==
LOC: CARD 09:25
PROVIDERS: ATTEND Nurse Practitioner Family
DX: R00.2 Palpitations (principal)
CPT/HCPCS: 93225; 93226

== ENCOUNTER 2019-01-09 11:25 | Outpatient (CLI) | payer MEDICARE ==
[~2019-01-09] VITALS: Ht 167.6 cm; Wt 181.4 kg
[~2019-01-09 11:25] MED LIST changes: +BUDE10.2 PO; +GABA-490 PO; +RANI300T4 PO
== END 2019-01-09 11:27 | disposition home or self-care (01) ==
LOC: PREOP 11:25
PROVIDERS: ATTEND Surgery
DX: Z01.818 Encounter for other preprocedural examination (principal)

== ENCOUNTER 2019-01-13 12:36 | Day surgery (SDC) | payer MEDICAID, MEDICARE ==
[~2019-01-13] VITALS: Ht 167.6 cm; Wt 181.4 kg
--- OUTSIDE RECORDS SUMMARY | 2019-01-13 12:39 | XMS REPORT ---
Author Author REED PETERSON [facility] Address [address] [place] [address] Care Team Providers Care Tower Hand Name Role Phone REED PETERSON Unavailable PROBLEMS Type Condition ICD9-CM Code [id number] Code Onset Dates Condition Status SNOMED Code Problem Dyspepsia R10.13 Active 681776451 Problem Constipation, unspecified constipation type K59.00 Active 93453335 Problem Sciatica of left side M54.32 Active 54790591 Problem Pain of right hip joint M25.551 Active 33902519 Problem Mild persistent asthma without complication J45.30 Active 813483598 Problem Comprehensive diabetic foot examination, type 2 DM, encounter for E11.9 Active 03611688 Problem Body mass index (BMI) of 45.0-49.9 in adult Z68.42 Active 611865347 Problem Mild intermittent asthma with acute exacerbation J45.21 Active 994450511 Problem Morbid (severe) obesity due to excess calories E66.01 Active 328946405 Problem Arthritis M19.90 Active 1615492 Problem Essential hypertension, hypertension with unspecified goal I10 Active 51776819 Problem Bilateral carpal tunnel syndrome G56.03 Active 60397015 Problem Type 2 diabetes mellitus without complication E11.9 Active 66530919 Problem 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 Active 09456125 ALLERGIES No Known Allergies ENCOUNTERS Encounter Location Date Diagnosis [facility] [address] [facility] [id number] [id number] Apr, Type 2 diabetes mellitus without complication E11.9 ; Arthritis M19.90 ; Dyspepsia R10.13 and Pain of right hip joint M25.551 [facility] [id number] [id number] Mar, [facility] [id number] [id number] Mar, Type 2 diabetes mellitus without complication E11.9 ; Pain of right hip joint M25.551 ; Mild persistent asthma without complication J45.30 ; Essential hypertension, hypertension with unspecified goal I10 ; Left lower quadrant pain R10.32 ; Dyspepsia R10.13 and BMI 60.0-69.9, adult Z68.44 [address] [id number] Dec, BMI 60.0-69.9, adult Z68.[address] [place] [address] [id number] Dec, [address] [place] [address] [id number] Dec, Type 2 diabetes mellitus without complication E11.9 ; Mild persistent asthma without complication J45.30 ; Essential hypertension, hypertension with unspecified goal I10 ; Acute nasopharyngitis J00 ; Left lower quadrant pain R10.32 ; Dyspepsia R10.13 and BMI 60.0-69.9, adult Z68.44 [address] [place] [address] [id number] Dec, Sciatica of left side M54.32 [address] [place] [address] [id number] Sep, BMI 60.0-69.9, adult Z68.44 ; Asthma, unspecified asthma severity, unspecified whether complicated, unspecified whether persistent J45.909 ; Other viral agents as the cause of diseases classified elsewhere B97.89 and Acute upper respiratory infection, unspecified J06.[address] [place] [address] [id number] Sep, Type 2 diabetes mellitus without complication E11.9 ; Acute nasopharyngitis J00 ; Mild intermittent asthma with acute exacerbation J45.21 and BMI 60.0-69.9, adult Z68.44 [address] [place] [address] [id number] Aug, Sciatica of left side M54.32 [address] [place] [address] [id number] Jul, Left lower quadrant pain R10.32 [address] [place] [address] [id number] Jul, test negative Z32.02 [facility] [id number] [place] [address] [id number] 10 Jul, 2017 Left lower quadrant pain R10.32 [facility] [id number] [place] [address] [id number] 09 Jul, 2017 Mild intermittent asthma without complication J45.20 [place] [id number] [place] [address] [id number] 05 Jul, 2017 Dyspepsia R10.13 ; Comprehensive diabetic foot examination, type 2 DM, encounter for E11.9 ; Pain of upper abdomen R10.10 ; Body mass index (BMI) of 45.0-49.9 in adult Z68.42 and Morbid (severe) obesity due to excess calories E66.01 [facility] [id number] [place] [address] [id number] 13 Jun, 2017 Left upper quadrant pain R10.12 ; Constipation, unspecified constipation type K59.00 ; Plantar fasciitis of right foot M72.2 and Type 2 diabetes mellitus without complication E11.9 [place] [id number] [place] [address] [id number] May, Type 2 diabetes mellitus without complication E11.9 ; Dyspepsia R10.13 and Sciatica of left side M54.32 [place] [id number] [place] [address] [id number] Jan, Type 2 diabetes mellitus without complication E11.9 ; Dyspepsia R10.13 and Acute cystitis with hematuria N30.01 [facility] [id number] [place] [address] [id number] Jan, [facility] [id number] [place] [address] [id number] Jan, [place] [id number] [place] [address] [id number] Dec, [facility] [id number] [place] [address] [id number] Dec, 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 and Type 2 diabetes mellitus without complication E11.9 [facility] [id number] [id number] Nov, [facility] [id number] [place] [address] [id number] Oct, [facility] [id number] [place] [address] [id number] Jul, Type 2 diabetes mellitus without complication E11.9 and Bilateral carpal tunnel syndrome G56.03 [facility] [id number] [place] [address] [id number] May, [facility] [id number] [place] [address] [id number] Mar, Type 2 diabetes mellitus without complication E11.9 ; Essential hypertension, hypertension with unspecified goal I10 and Arthritis M19.90 [facility] [id number] [place] [address] [id number] February, Essential hypertension, hypertension with unspecified goal I10 and Type 2 diabetes mellitus without complication E11.9 [facility] [id number] [place] [address] [id number] February, [facility] [id number] [place] [address] [id number] February, [facility] [id number] [place] [address] [id number] Jan, Encounter for dental examination Z01.20 [facility] [id number] [place] [phone] Jan, [address] [place] [address] [id number] Jan, [address] [place] [address] [id number] Jan, [facility] [address] [phone] Jan, [facility] [id number] [place] [address] [id number] 12 Jan, 2016 Well woman exam Z01.419 ; Urgency of urination R39.15 ; Urinary incontinence R32 ; Fungal infection of skin B36.9 ; Seasonal allergies J30.2 ; Contraceptive management Z30.9 and Morbid obesity E66.01 [facility] [address] [facility] [id number] [place] [id number] Jan, Type 2 diabetes mellitus without complication E11.9 and Essential hypertension, hypertension with unspecified goal I10 [facility] [address] [facility] [id number] [place] [id number] Jan, Type 2 diabetes mellitus without complication E11.9 ; Essential hypertension, hypertension with unspecified goal I10 ; Arthritis M19.90 and Mild intermittent asthma without complication J45.20 IMMUNIZATIONS No Known Immunizations SOCIAL HISTORY Never Assessed REASON FOR VISIT CH- 4 week fu Diabetes/lab results [facility] PLAN OF CARE Activity Details Follow Up 3 Months Reason:dm VITAL SIGNS Height 64.75 in 2018-05-01 Weight 406 lbs 2018-05-01 Temperature 97.6 degrees Fahrenheit 2018-05-01 Heart Rate 76 bpm 2018-05-01 Respiratory Rate 20 2018-05-01 BMI 68.08 kg/m2 2018-05-01 Blood pressure systolic 104 mmHg 2018-05-01 Blood pressure diastolic 68 mmHg 2018-05-01 MEDICATIONS Medication Instructions Dosage Frequency Start Date End Date Duration Status Lasix 20 mg Orally Once a day .5 tablet 24h Dec, Active Lipitor 20 mg Orally Once a day 1 tablet 24h Active Lisinopril 20 mg Orally Once a day 1 tablet 24h Active Flonase 50 MCG/ACT Nasally Once a day 1 spray in each nostril 24h Mar, 30 day(s) Active Ibuprofen 800 MG Orally Three times a day 1 tablet with food or milk as needed 8h Mar, Active Aspirin EC 81 mg TAKE ONE (1) TABLET BY MOUTH DAILY... Active Inspiration Nebulizer System & Tubing by inhalation route 3 times a day as directed 8h Sep, Active Symbicort 160-4.5 MCG/ACT Inhalation Twice a day 2 puffs 12h Dec, Active Metformin HCl 500 mg Orally Twice a day 1.5 tablet am 1 tab pm with meals 12h Active Zantac 300 MG Orally Once a day 1 tablet at bedtime 24h Jan, Active True Metrix Meter - as directed Jun, Active ProAir HFA 108 (90 Base) MCG/ACT Inhalation every 4 hrs 2 puffs as needed 4h Active Gabapentin 300 MG Orally Three times a day 1 capsule 8h 01 Aug, 2017 Active Lancets - subcutaneously Once a day DX: E11.9 as directed Nov, 30 days Active Albuterol Sulfate (2.5 MG/3ML) 0.083% Inhalation Three times a day 3 ml as needed 8h 15 Sep, 2017 Active True Metrix Blood Glucose Test - TEST BLOOD SUGAR ONCE DAILY DIRECTED. Active RESULTS No Results PROCEDURES Procedure Date Ordered Result Body Site [facility] EST[facility] PATIENT May 01, 2018 INSTRUCTIONS MEDICATIONS ADMINISTERED No Known Medications MEDICAL [...] Surgical History cholecystectomy 12/28/16 Hospitalization History childbirth Hospitalization History [facility] ED- Fever, weakness 02/16/2018
--- OUTSIDE RECORDS SUMMARY | 2019-01-13 12:39 | XMS REPORT ---
Author Author REED PETERSON [facility] Address [address] [place] [address] Care Team Providers Care Newspaper Delivery Driver Name Role Phone REED PETERSON Unavailable PROBLEMS Type Condition ICD9-CM Code ASX48-SF Code Onset Dates Condition Status SNOMED Code Problem Dyspepsia R10.13 Active 877680927 Problem Constipation, unspecified constipation type K59.00 Active 18051006 Problem Sciatica of left side M54.32 Active 73942201 Problem Pain of right hip joint M25.551 Active 77270281 Problem Mild persistent asthma without complication J45.30 Active 320629578 Problem Comprehensive diabetic foot examination, type 2 DM, encounter for E11.9 Active 85907951 Problem Body mass index (BMI) of 45.0-49.9 in adult Z68.42 Active 284345387 Problem Mild intermittent asthma with acute exacerbation J45.21 Active 379461412 Problem Morbid (severe) obesity due to excess calories E66.01 Active 204496358 Problem Arthritis M19.90 Active 4244687 Problem Essential hypertension, hypertension with unspecified goal I10 Active 39504854 Problem Bilateral carpal tunnel syndrome G56.03 Active 70065513 Problem Type 2 diabetes mellitus without complication E11.9 Active 64612810 Problem 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 Active 51785063 ALLERGIES No Known Allergies ENCOUNTERS Encounter Location Date Diagnosis [facility] 120 [facility] [id number] [id number] Apr, Type 2 diabetes mellitus without complication E11.9 ; Arthritis M19.90 ; Dyspepsia R10.13 and Pain of right hip joint M25.551 [facility] [id number] [place] [id number] Mar, [facility] [id number] [place] [id number] Mar, Type 2 diabetes mellitus without complication E11.9 ; Pain of right hip joint M25.551 ; Mild persistent asthma without complication J45.30 ; Essential hypertension, hypertension with unspecified goal I10 ; Left lower quadrant pain R10.32 ; Dyspepsia R10.13 and BMI 60.0-69.9, adult Z68.[address] [place] [id number] Dec, BMI 60.0-69.9, adult Z68.44 [address] [place] [address] [id number] Dec, [address] [place] [address] [id number] Dec, Type 2 diabetes mellitus without complication E11.9 ; Mild persistent asthma without complication J45.30 ; Essential hypertension, hypertension with unspecified goal I10 ; Acute nasopharyngitis J00 ; Left lower quadrant pain R10.32 ; Dyspepsia R10.13 and BMI 60.0-69.9, adult Z68.44 [address] [place] [address] [id number] Dec, Sciatica of left side M54.32 [address] [place] [address] [id number] Sep, BMI 60.0-69.9, adult Z68.44 ; Asthma, unspecified asthma severity, unspecified whether complicated, unspecified whether persistent J45.909 ; Other viral agents as the cause of diseases classified elsewhere B97.89 and Acute upper respiratory infection, unspecified J06.9 [address] [place] [address] [id number] Sep, Type 2 diabetes mellitus without complication E11.9 ; Acute nasopharyngitis J00 ; Mild intermittent asthma with acute exacerbation J45.21 and BMI 60.0-69.9, adult Z68.44 [address] [place] [address] [id number] Aug, Sciatica of left side M54.32 [address] [place] [address] [id number] Jul, Left lower quadrant pain R10.32 [address] [place] [address] [id number] Jul, test negative Z32.02 [facility] [id number] [place] [address] [id number] 10 Jul, 2017 Left lower quadrant pain R10.32 [facility] [id number] [place] [address] [id number] 09 Jul, 2017 Mild intermittent asthma without complication J45.20 [place] [id number] [place] [address] [id number] 05 Jul, 2017 Dyspepsia R10.13 ; Comprehensive diabetic foot examination, type 2 DM, encounter for E11.9 ; Pain of upper abdomen R10.10 ; Body mass index (BMI) of 45.0-49.9 in adult Z68.42 and Morbid (severe) obesity due to excess calories E66.01 [facility] [id number] [place] [address] [id number] 13 Jun, 2017 Left upper quadrant pain R10.12 ; Constipation, unspecified constipation type K59.00 ; Plantar fasciitis of right foot M72.2 and Type 2 diabetes mellitus without complication E11.9 [place] [id number] [place] [address] [id number] May, Type 2 diabetes mellitus without complication E11.9 ; Dyspepsia R10.13 and Sciatica of left side M54.32 [place] [id number] [place] [address] [id number] Jan, Type 2 diabetes mellitus without complication E11.9 ; Dyspepsia R10.13 and Acute cystitis with hematuria N30.01 [facility] [id number] [place] [address] [id number] Jan, [facility] [id number] [place] [address] [id number] Jan, [place] [id number] [place] [address] [id number] Dec, [facility] [id number] [place] [address] [id number] Dec, 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 and Type 2 diabetes mellitus without complication E11.9 [facility] [id number] [place] [id number] Nov, [facility] [id number] [place] [address] [id number] Oct, [facility] [id number] [place] [address] [id number] Jul, Type 2 diabetes mellitus without complication E11.9 and Bilateral carpal tunnel syndrome G56.03 [facility] [id number] [place] [address] [id number] May, [facility] [id number] [place] [address] [id number] Mar, Type 2 diabetes mellitus without complication E11.9 ; Essential hypertension, hypertension with unspecified goal I10 and Arthritis M19.90 [facility] [id number] [place] [address] [id number] February, Essential hypertension, hypertension with unspecified goal I10 and Type 2 diabetes mellitus without complication E11.9 [facility] [id number] [place] [address] [id number] February, [facility] [id number] [place] [address] [id number] February, [facility] [id number] [place] [address] [id number] Jan, Encounter for dental examination Z01.20 [facility] [id number] [place] [phone] Jan, [address] [place] [address] [id number] Jan, [address] [place] [address] [id number] Jan, [facility] [address] [phone] Jan, [facility] [id number] [place] [address] [id number] 12 Jan, 2016 Well woman exam Z01.419 ; Urgency of urination R39.15 ; Urinary incontinence R32 ; Fungal infection of skin B36.9 ; Seasonal allergies J30.2 ; Contraceptive management Z30.9 and Morbid obesity E66.01 [facility] [address] [facility] [id number] [place] [id number] Jan, Type 2 diabetes mellitus without complication E11.9 and Essential hypertension, hypertension with unspecified goal I10 [facility] [address] [facility] [id number] [place] [phone] Jan, Type 2 diabetes mellitus without complication E11.9 ; Essential hypertension, hypertension with unspecified goal I10 ; Arthritis M19.90 and Mild intermittent asthma without complication J45.20 IMMUNIZATIONS No Known Immunizations SOCIAL HISTORY Never Assessed REASON FOR VISIT Diabetes follow-up [facility] PLAN OF CARE Activity Details Follow Up 4 Weeks Reason:lab result VITAL SIGNS Height 66 in 2018-03-27 Weight 410 lbs 2018-03-27 Temperature 96.9 degrees Fahrenheit 2018-03-27 Heart Rate 70 bpm 2018-03-27 Respiratory Rate 18 2018-03-27 BMI 66.17 kg/m2 2018-03-27 Blood pressure systolic 110 mmHg 2018-03-27 Blood pressure diastolic 68 mmHg 2018-03-27 MEDICATIONS Medication Instructions Dosage Frequency Start Date End Date Duration Status True Metrix Blood Glucose Test - TEST BLOOD SUGAR ONCE DAILY DIRECTED. Active True Metrix Meter - as directed Jun, Active Polyethylene Glycol 3350 - Orally Once a day 1 cap 24h Jun, Active Lancets - subcutaneously Once a day DX: E11.9 as directed Nov, 30 days Active Inspiration Nebulizer System & Tubing by inhalation route 3 times a day as directed 8h Sep, Active ProAir HFA 108 (90 Base) MCG/ACT Inhalation every 4 hrs 2 puffs as needed 4h Active Ibuprofen 800 MG Orally Three times a day 1 tablet with food or milk as needed 8h Mar, Active Lisinopril 20 mg Orally Once a day 1 tablet 24h Active Gabapentin 300 MG Orally Three times a day 1 capsule 8h May, Active Lipitor 20 mg Orally Once a day 1 tablet 24h Active Aspirin EC 81 mg TAKE ONE (1) TABLET BY MOUTH DAILY... Active Symbicort 160-4.5 MCG/ACT Inhalation Twice a day 2 puffs 12h Dec, Active Zantac 300 MG Orally Once a day 1 tablet at bedtime 24h Jan, 90 days Active Nasonex 50 MCG/ACT ADMINISTER (2) TWO SPRAYS INTO EACH NOSTRIL ONCE DAILY. Active Metformin HCl 500 mg Orally Twice a day 1.5 tablet am 1 tab pm with meals 12h Active Lasix 20 mg Orally Once a day .5 tablet 24h Dec, Active Albuterol Sulfate (2.5 MG/3ML) 0.083% Inhalation Three times a day 3 ml as needed 8h 15 Sep, 2017 Active RESULTS No Results PROCEDURES Procedure Date Ordered Result Body Site GLYCATED HEMOGLOBIN TEST March 27, 2018 MICROALBUMIN, SEMIQUANT March 27, 2018 [facility] VISIT ESTABLISHED PATIENT March 27, 2018 LAB [facility] March 27, 2018 VENIPUNCT, ROUTINE* March 27, 2018 INSTRUCTIONS MEDICATIONS ADMINISTERED No Known Medications [...] cholecystectomy 12/28/16 Hospitalization History childbirth Hospitalization History [facility] ED- Fever, weakness 02/16/2018
--- OUTSIDE RECORDS SUMMARY | 2019-01-13 12:39 | XMS REPORT ---
Author Author REED PETERSON Organization [facility] Address [address] [place] [address] Care Team Providers Care Deicer Finisher Name Role Phone REED PETERSON Unavailable PROBLEMS Type Condition ICD9-CM Code [id number] Code Onset Dates Condition Status SNOMED Code Problem Dyspepsia R10.13 Active 745252743 Problem Constipation, unspecified constipation type K59.00 Active 79562090 Problem Sciatica of left side M54.32 Active 54022211 Problem Pain of right hip joint M25.551 Active 72638971 Problem Mild persistent asthma without complication J45.30 Active 521546224 Problem Comprehensive diabetic foot examination, type 2 DM, encounter for E11.9 Active 80985939 Problem Body mass index (BMI) of 45.0-49.9 in adult Z68.42 Active 912002883 Problem Mild intermittent asthma with acute exacerbation J45.21 Active 751935959 Problem Morbid (severe) obesity due to excess calories E66.01 Active 579171386 Problem Arthritis M19.90 Active 7556443 Problem Essential hypertension, hypertension with unspecified goal I10 Active 50738512 Problem Bilateral carpal tunnel syndrome G56.03 Active 56955662 Problem Type 2 diabetes mellitus without complication E11.9 Active 61699131 Problem 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 Active 40760163 ALLERGIES No Information ENCOUNTERS Encounter Location Date Diagnosis [facility] [address] [facility] [id number] [id number] May, [facility] [id number] [id number] Apr, Type 2 diabetes mellitus without complication E11.9 ; Arthritis M19.90 ; Dyspepsia R10.13 and Pain of right hip joint M25.551 [facility] [id number] [id number] Mar, [place] [address] [place] [id number] [place] [address] [id number] Mar, Type 2 diabetes mellitus without complication E11.9 ; Pain of right hip joint M25.551 ; Mild persistent asthma without complication J45.30 ; Essential hypertension, hypertension with unspecified goal I10 ; Left lower quadrant pain R10.32 ; Dyspepsia R10.13 and BMI 60.0-69.9, adult Z68.44 [facility] [id number] [place] [address] [id number] Dec, BMI 60.0-69.9, adult Z68.44 [facility] [id number] [place] [address] [id number] Dec, [place] [id number] [place] [address] [id number] Dec, Type 2 diabetes mellitus without complication E11.9 ; Mild persistent asthma without complication J45.30 ; Essential hypertension, hypertension with unspecified goal I10 ; Acute nasopharyngitis J00 ; Left lower quadrant pain R10.32 ; Dyspepsia R10.13 and BMI 60.0-69.9, adult Z68.44 [facility] [id number] [place] [address] [id number] Dec, Sciatica of left side M54.32 [place] [id number] [place] [address] [id number] Sep, BMI 60.0-69.9, adult Z68.44 ; Asthma, unspecified asthma severity, unspecified whether complicated, unspecified whether persistent J45.909 ; Other viral agents as the cause of diseases classified elsewhere B97.89 and Acute upper respiratory infection, unspecified J06.9 [facility] [address] [id number] Sep, Type 2 diabetes mellitus without complication E11.9 ; Acute nasopharyngitis J00 ; Mild intermittent asthma with acute exacerbation J45.21 and BMI 60.0-69.9, adult Z68.44 [facility] [id number] [id number] Aug, Sciatica of left side M54.32 [facility] [address] [place] [id number] [place] [address] [id number] Jul, Left lower quadrant pain R10.32 [place] [id number] [place] [address] [id number] Jul, test negative Z32.02 [facility] [id number] [place] [address] [id number] Jul, Left lower quadrant pain R10.32 [place] [address] [place] [id number] [place] [address] [id number] Jul, Mild intermittent asthma without complication J45.20 [place] [id number] [place] [address] [id number] Jul, Dyspepsia R10.13 ; Comprehensive diabetic foot examination, type 2 DM, encounter for E11.9 ; Pain of upper abdomen R10.10 ; Body mass index (BMI) of 45.0-49.9 in adult Z68.42 and Morbid (severe) obesity due to excess calories E66.01 [place] [id number] [place] [address] [id number] Jun, Left upper quadrant pain R10.12 ; Constipation, unspecified constipation type K59.00 ; Plantar fasciitis of right foot M72.2 and Type 2 diabetes mellitus without complication E11.9 [place] [id number] [place] [address] [id number] May, Type 2 diabetes mellitus without complication E11.9 ; Dyspepsia R10.13 and Sciatica of left side M54.32 [place] [address] [place] [address] [id number] Jan, Type 2 diabetes mellitus without complication E11.9 ; Dyspepsia R10.13 and Acute cystitis with hematuria N30.[address] [place] [address] [id number] Jan, [place] [id number] [place] [address] [id number] Jan, [address] [place] [address] [id number] Dec, [place] [id number] [place] [address] [id number] Dec, 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 and Type 2 diabetes mellitus without complication E11.9 [facility] [id number] [place] [address] [id number] Nov, [facility] [address] [place] [id number] [place] [address] [id number] Oct, [facility] [id number] [place] [address] [id number] Jul, Type 2 diabetes mellitus without complication E11.9 and Bilateral carpal tunnel syndrome G56.03 [facility] [address] [place] [id number] [place] [address] [id number] May, [facility] [address] [place] [id number] [place] [address] [id number] Mar, Type 2 diabetes mellitus without complication E11.9 ; Essential hypertension, hypertension with unspecified goal I10 and Arthritis M19.90 [facility] [address] [place] [id number] [place] [address] [id number] February, Essential hypertension, hypertension with unspecified goal I10 and Type 2 diabetes mellitus without complication E11.9 [facility] [id number] [place] [address] [id number] February, [facility] [address] [place] [id number] [place] [address] [id number] February, [facility] [address] [place] [address] [id number] Jan, Encounter for dental examination Z01.20 [facility] [address] [address] Jan, [facility] [id number] [place] [address] [id number] Jan, [facility] [address] [place] [id number] [place] [address] [id number] Jan, [facility] [address] [address] Jan, [facility] [address] [place] [id number] [place] [address] [id number] Jan, Well woman exam Z01.419 ; Urgency of urination R39.15 ; Urinary incontinence R32 ; Fungal infection of skin B36.9 ; Seasonal allergies J30.2 ; Contraceptive management Z30.9 and Morbid obesity E66.[address] [id number] [id number] Jan, Type 2 diabetes mellitus without complication E11.9 and Essential hypertension, hypertension with unspecified goal I10 [address] [id number] [id number] Jan, Type 2 diabetes mellitus without complication E11.9 ; Essential hypertension, hypertension with unspecified goal I10 ; Arthritis M19.90 and Mild intermittent asthma without complication J45.20 IMMUNIZATIONS No Known Immunizations SOCIAL HISTORY Never Assessed REASON FOR VISIT change med PLAN OF CARE VITAL SIGNS MEDICATIONS Medication Instructions Dosage Frequency Start Date End Date Duration Status Flonase 50 MCG/ACT Nasally Once a day 1 spray in each nostril 24h Mar, 30 day(s) Active RESULTS No Results PROCEDURES No Known procedures INSTRUCTIONS MEDICATIONS ADMINISTERED No Known Medications MEDICAL [...] cholecystectomy 12/28/16 Hospitalization History childbirth Hospitalization History [facility] [place] ED- Fever, weakness 02/16/2018
--- OUTSIDE RECORDS SUMMARY | 2019-01-13 12:40 | XMS REPORT ---
Author Author REED PETERSON Organization [facility] Address [address] [place] [address] Care Team Providers Care Veneer Jointer Offbearer Name Role Phone REED PETERSON Unavailable PROBLEMS Type Condition ICD9-CM Code VNH25-WU Code Onset Dates Condition Status SNOMED Code Problem 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 Active 46417467 Problem Sciatica of left side M54.32 Active 14887785 Problem Dyspepsia R10.13 Active 289125498 Problem Type 2 diabetes mellitus without complication E11.9 Active 16413784 Problem Arthritis M19.90 Active 9653499 Problem Essential hypertension, hypertension with unspecified goal I10 Active 25367316 Problem Bilateral carpal tunnel syndrome G56.03 Active 01440320 Problem Mild persistent asthma without complication J45.30 Active 286703422 Problem Mild intermittent asthma with acute exacerbation J45.21 Active 504065881 Problem Body mass index (BMI) of 45.0-49.9 in adult Z68.42 Active 195913947 Problem Constipation, unspecified constipation type K59.00 Active 05245360 Problem Morbid (severe) obesity due to excess calories E66.01 Active 896556706 Problem Comprehensive diabetic foot examination, type 2 DM, encounter for E11.9 Active 30669279 ALLERGIES No Known Allergies ENCOUNTERS Encounter Location Date Diagnosis [facility] [address] [facility] [id number] [id number] Dec, BMI 60.0-69.9, adult Z68.[address] [id number] [id number] Dec, [place] [id number] [place] [address] [id number] Dec, Type 2 diabetes mellitus without complication E11.9 ; Mild persistent asthma without complication J45.30 ; Essential hypertension, hypertension with unspecified goal I10 ; Acute nasopharyngitis J00 ; Left lower quadrant pain R10.32 ; Dyspepsia R10.13 and BMI 60.0-69.9, adult Z68.44 [place] [id number] [place] [address] [id number] Dec, Sciatica of left side M54.32 [facility] [place] [id number] [place] [address] [id number] 15 Sep, 2017 BMI 60.0-69.9, adult Z68.44 ; Asthma, unspecified asthma severity, unspecified whether complicated, unspecified whether persistent J45.909 ; Other viral agents as the cause of diseases classified elsewhere B97.89 and Acute upper respiratory infection, unspecified J06.9 [place] [id number] [place] [address] [id number] Sep, Type 2 diabetes mellitus without complication E11.9 ; Acute nasopharyngitis J00 ; Mild intermittent asthma with acute exacerbation J45.21 and BMI 60.0-69.9, adult Z68.44 [place] [id number] [place] [address] [id number] Aug, Sciatica of left side M54.32 [place] [id number] [place] [address] [id number] Jul, Left lower quadrant pain R10.32 [place] [id number] [place] [address] [id number] Jul, test negative Z32.02 [place] [address] [place] [address] [id number] Jul, Left lower quadrant pain R10.32 [place] [id number] [place] [address] [id number] Jul, Mild intermittent asthma without complication J45.[address] [place] [address] [id number] Jul, Dyspepsia R10.13 ; Comprehensive diabetic foot examination, type 2 DM, encounter for E11.9 ; Pain of upper abdomen R10.10 ; Body mass index (BMI) of 45.0-49.9 in adult Z68.42 and Morbid (severe) obesity due to excess calories E66.01 [place] [id number] [place] [address] [id number] Jun, Left upper quadrant pain R10.12 ; Constipation, unspecified constipation type K59.00 ; Plantar fasciitis of right foot M72.2 and Type 2 diabetes mellitus without complication E11.9 [facility] [address] [place] [id number] [place] [address] [id number] May, Type 2 diabetes mellitus without complication E11.9 ; Dyspepsia R10.13 and Sciatica of left side M54.32 [facility] [address] [place] [id number] [place] [address] [id number] Jan, Type 2 diabetes mellitus without complication E11.9 ; Dyspepsia R10.13 and Acute cystitis with hematuria N30.01 [facility] [address] [place] [id number] [place] [address] [id number] Jan, [facility] [address] [place] [id number] [place] [address] [id number] Jan, [facility] [address] [place] [id number] [place] [address] [id number] Dec, [facility] [address] [place] [id number] [place] [address] [id number] Dec, 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 and Type 2 diabetes mellitus without complication E11.9 [facility] [id number] [place] [address] [id number] Nov, [facility] [address] [place] [id number] [place] [address] [id number] Oct, [facility] [address] [place] [id number] [place] [address] [id number] Jul, Type 2 diabetes mellitus without complication E11.9 and Bilateral carpal tunnel syndrome G56.03 [facility] [address] [place] [id number] [place] [address] [id number] May, [facility] [address] [place] [id number] [place] [address] [id number] Mar, Type 2 diabetes mellitus without complication E11.9 ; Essential hypertension, hypertension with unspecified goal I10 and Arthritis M19.90 [facility] [address] [place] [id number] [place] [address] [id number] February, Essential hypertension, hypertension with unspecified goal I10 and Type 2 diabetes mellitus without complication E11.9 [facility] [id number] [place] [address] [id number] February, [facility] [address] [place] [id number] [place] [address] [id number] February, [facility] [address] [place] [address] [id number] Jan, Encounter for dental examination Z01.20 [facility] [address] [address] Jan, [facility] [address] [place] [id number] [place] [address] [id number] Jan, [facility] [address] [id number] [place] [address] [id number] Jan, [facility] [address] [place] [id number] [place] [phone] Jan, [facility] [address] [place] [id number] [place] [address] [id number] Jan, Well woman exam Z01.419 ; Urgency of urination R39.15 ; Urinary incontinence R32 ; Fungal infection of skin B36.9 ; Seasonal allergies J30.2 ; Contraceptive management Z30.9 and Morbid obesity E66.01 [facility] [address] [place] [address] [id number] Jan, Type 2 diabetes mellitus without complication E11.9 and Essential hypertension, hypertension with unspecified goal I10 [facility] [address] [place] [address] [id number] Jan, Type 2 diabetes mellitus without complication E11.9 ; Essential hypertension, hypertension with unspecified goal I10 ; Arthritis M19.90 and Mild intermittent asthma without complication J45.20 IMMUNIZATIONS No Known Immunizations SOCIAL HISTORY Never Assessed REASON FOR VISIT Abdominal pain all kendalls Karen RN PLAN OF CARE Activity Details Follow Up 2 - 3 Days Reason:abd pain VITAL SIGNS Height 66 in 2017-07-16 Weight 393.0 lbs 2017-07-16 Temperature 98.5 degrees Fahrenheit 2017-07-16 Heart Rate 72 bpm 2017-07-16 Respiratory Rate 18 2017-07-16 BMI 63.42 kg/m2 2017-07-16 Blood pressure systolic 122 mmHg 2017-07-16 Blood pressure diastolic 64 mmHg 2017-07-16 MEDICATIONS Medication Instructions Dosage Frequency Start Date End Date Duration Status Lancets - subcutaneously Once a day DX: E11.9 as directed Nov, 30 days Active Zantac 300 MG Orally Once a day 1 tablet at bedtime 24h Jan, 90 days Active True Metrix Blood Glucose Test - TEST BLOOD SUGAR ONCE DAILY DIRECTED. Active Polyethylene Glycol 3350 - Orally Once a day 1 cap 24h Jun, Active Sprintec 28 0.25-35 MG-MCG Orally Once a day 1 tablet 24h 90 Active Metformin HCl 500 MG Orally Twice a day 1 tablet with meals 12h Active Lipitor 20 mg Orally Once a day 1 tablet 24h Active True Metrix Meter - as directed Jun, Active Nasonex 50 MCG/ACT ADMINISTER (2) TWO SPRAYS INTO EACH NOSTRIL ONCE DAILY. Active ProAir HFA 108 (90 Base) MCG/ACT Inhalation every 4 hrs 2 puffs as needed 4h Active Diclofenac Sodium 50 mg Orally Three times a day 1 tablet with food or milk 8h May, Active Gabapentin 300 MG Orally Three times a day 1 capsule 1 tab qhs x 5 d then bid x 5 d then tid 8h May, Active Lisinopril 20 mg Orally Once a day 1 tablet 24h Active Aspirin EC 81 MG TAKE ONE (1) TABLET BY MOUTH DAILY... Active RESULTS Name Result Date Reference Range Xray : KUB 2017-07-17 PROCEDURES Procedure Date Ordered Result Body Site X-RAY EXAM OF ABDOMEN Jul 16, 2017 [facility] VISIT ESTABLISHED PATIENT Jul 16, 2017 INSTRUCTIONS MEDICATIONS ADMINISTERED No Known Medications [...]
--- OUTSIDE RECORDS SUMMARY | 2019-01-13 12:40 | XMS REPORT ---
Author Author REED PETERSON [facility] Address [address] [place] [address] Care Team Providers Care Human Relations Teacher Name Role Phone REED PETERSON Unavailable PROBLEMS Type Condition ICD9-CM Code KBF40-MR Code Onset Dates Condition Status SNOMED Code Problem Dyspepsia R10.13 Active 172878527 Problem Constipation, unspecified constipation type K59.00 Active 64542928 Problem Sciatica of left side M54.32 Active 56267373 Problem Pain of right hip joint M25.551 Active 34304370 Problem Mild persistent asthma without complication J45.30 Active 782262736 Problem Comprehensive diabetic foot examination, type 2 DM, encounter for E11.9 Active 81343615 Problem Body mass index (BMI) of 45.0-49.9 in adult Z68.42 Active 231259331 Problem Mild intermittent asthma with acute exacerbation J45.21 Active 207096352 Problem Morbid (severe) obesity due to excess calories E66.01 Active 175335014 Problem Arthritis M19.90 Active 8368595 Problem Essential hypertension, hypertension with unspecified goal I10 Active 24506128 Problem Bilateral carpal tunnel syndrome G56.03 Active 88927124 Problem Type 2 diabetes mellitus without complication E11.9 Active 77396685 Problem 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 Active 64177877 ALLERGIES No Information ENCOUNTERS Encounter Location Date Diagnosis [facility] [address] [facility] [id number] [id number] Apr, [facility] [address] [facility] [id number][place] [id number] Mar, [address] [id number][place] [id number] Mar, Type 2 diabetes mellitus without complication E11.9 ; Pain of right hip joint M25.551 ; Mild persistent asthma without complication J45.30 ; Essential hypertension, hypertension with unspecified goal I10 ; Left lower quadrant pain R10.32 ; Dyspepsia R10.13 and BMI 60.0-69.9, adult Z68.44 [place] [id number] [place] [address] [id number] Dec, BMI 60.0-69.9, adult Z68.44 [facility] [id number], [place] [id number] Dec, [place] [id number] [place] [address] [id number] Dec, Type 2 diabetes mellitus without complication E11.9 ; Mild persistent asthma without complication J45.30 ; Essential hypertension, hypertension with unspecified goal I10 ; Acute nasopharyngitis J00 ; Left lower quadrant pain R10.32 ; Dyspepsia R10.13 and BMI 60.0-69.9, adult Z68.44 [address] [place] [address] [id number] Dec, Sciatica of left side M54.32 [place] [id number] [place] [address] [id number] Sep, BMI 60.0-69.9, adult Z68.44 ; Asthma, unspecified asthma severity, unspecified whether complicated, unspecified whether persistent J45.909 ; Other viral agents as the cause of diseases classified elsewhere B97.89 and Acute upper respiratory infection, unspecified J06.[address] [place] [address] [id number] Sep, Type 2 diabetes mellitus without complication E11.9 ; Acute nasopharyngitis J00 ; Mild intermittent asthma with acute exacerbation J45.21 and BMI 60.0-69.9, adult Z68.44 [address] [id number] Aug, Sciatica of left side M54.32 [place] [id number] [place] [address] [id number] Jul, Left lower quadrant pain R10.32 [address] [id number] Jul, test negative Z32.02 [place] [address] [place] [address] [id number] Jul, Left lower quadrant pain R10.32 [place] [address] [place] [address] [id number] Jul, Mild intermittent asthma without complication J45.20 [place] [address] [place] [address] [id number] Jul, Dyspepsia R10.13 ; Comprehensive diabetic foot examination, type 2 DM, encounter for E11.9 ; Pain of upper abdomen R10.10 ; Body mass index (BMI) of 45.0-49.9 in adult Z68.42 and Morbid (severe) obesity due to excess calories E66.01 [place] [address] [place] [address] [id number] Jun, Left upper quadrant pain R10.12 ; Constipation, unspecified constipation type K59.00 ; Plantar fasciitis of right foot M72.2 and Type 2 diabetes mellitus without complication E11.9 [place] [address] [place] [address] [id number] May, Type 2 diabetes mellitus without complication E11.9 ; Dyspepsia R10.13 and Sciatica of left side M54.32 [place] [address] [place] [address] [id number] Jan, Type 2 diabetes mellitus without complication E11.9 ; Dyspepsia R10.13 and Acute cystitis with hematuria N30.[address] [place] [address] [id number] Jan, [place] [id number] [place] [address] [id number] Jan, [place] [id number] [place] [address] [id number] Dec, [address] [id number] Dec, 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 and Type 2 diabetes mellitus without complication E11.9 [place] [id number] [place] [address] [id number] Nov, [place] [address] [id number] Oct, [facility] [address] [place] [id number] [place] [address] [id number] Jul, Type 2 diabetes mellitus without complication E11.9 and Bilateral carpal tunnel syndrome G56.03 [facility] [address] [place] [id number] [place] [address] [id number] May, [place] [id number] [place] [address] [id number] Mar, Type 2 diabetes mellitus without complication E11.9 ; Essential hypertension, hypertension with unspecified goal I10 and Arthritis M19.[address] [id number] February, Essential hypertension, hypertension with unspecified goal I10 and Type 2 diabetes mellitus without complication E11.9 [place] [id number] [place] [address] [id number] February, [address] [id number] February, [facility] [address] [id number] Jan, Encounter for dental examination Z01.20 [place] [address] [address] Jan, [place] [id number] [place] [address] [id number] Jan, [address] [id number] Jan, [place] [address] [address] 13 Jan, 2016 [place] [id number] [place] [address] [id number] 12 Jan, 2016 Well woman exam Z01.419 ; Urgency of urination R39.15 ; Urinary incontinence R32 ; Fungal infection of skin B36.9 ; Seasonal allergies J30.2 ; Contraceptive management Z30.9 and Morbid obesity E66.01 [place] [id number] [place] [address] [id number] Jan, Type 2 diabetes mellitus without complication E11.9 and Essential hypertension, hypertension with unspecified goal I10 [facility] [address] [facility] [id number] [place] [id number] Jan, Type 2 diabetes mellitus without complication E11.9 ; Essential hypertension, hypertension with unspecified goal I10 ; Arthritis M19.90 and Mild intermittent asthma without complication J45.20 IMMUNIZATIONS No Known Immunizations SOCIAL HISTORY Never Assessed REASON FOR VISIT RX-Gabapentin refill PLAN OF CARE VITAL SIGNS MEDICATIONS Medication Instructions Dosage Frequency Start Date End Date Duration Status Gabapentin 300 MG Orally Three times a day 1 capsule 8h May, Active RESULTS No Results PROCEDURES No Known [...]
--- OUTSIDE RECORDS SUMMARY | 2019-01-13 12:40 | XMS REPORT ---
Author Author REED PETERSON [facility] Address [address] [place] [address] Care Team Providers Care Motor Analyst Name Role Phone REED PETERSON Unavailable PROBLEMS Type Condition ICD9-CM Code UBI82-DQ Code Onset Dates Condition Status SNOMED Code Problem Dyspepsia R10.13 Active 216472671 Problem Constipation, unspecified constipation type K59.00 Active 25933657 Problem Sciatica of left side M54.32 Active 86664013 Problem Pain of right hip joint M25.551 Active 47649606 Problem Mild persistent asthma without complication J45.30 Active 171650183 Problem Comprehensive diabetic foot examination, type 2 DM, encounter for E11.9 Active 25879172 Problem Body mass index (BMI) of 45.0-49.9 in adult Z68.42 Active 871971582 Problem Mild intermittent asthma with acute exacerbation J45.21 Active 441491332 Problem Morbid (severe) obesity due to excess calories E66.01 Active 840038839 Problem Arthritis M19.90 Active 2500706 Problem Essential hypertension, hypertension with unspecified goal I10 Active 19144376 Problem Bilateral carpal tunnel syndrome G56.03 Active 20164114 Problem Type 2 diabetes mellitus without complication E11.9 Active 15012547 Problem 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 Active 11678958 ALLERGIES No Information ENCOUNTERS Encounter Location Date Diagnosis [facility] [address] [facility] [id number] [id number] Apr, [facility] [address] [facility] [id number][place] [id number] Mar, [address] [id number], [place] [id number] Mar, Type 2 diabetes mellitus without complication E11.9 ; Pain of right hip joint M25.551 ; Mild persistent asthma without complication J45.30 ; Essential hypertension, hypertension with unspecified goal I10 ; Left lower quadrant pain R10.32 ; Dyspepsia R10.13 and BMI 60.0-69.9, adult Z68.44 [place] [id number] [place] [address] [id number] Dec, BMI 60.0-69.9, adult Z68.44 [facility] [id number], [place] [id number] Dec, [place] [id number] [place] [address] [id number] Dec, Type 2 diabetes mellitus without complication E11.9 ; Mild persistent asthma without complication J45.30 ; Essential hypertension, hypertension with unspecified goal I10 ; Acute nasopharyngitis J00 ; Left lower quadrant pain R10.32 ; Dyspepsia R10.13 and BMI 60.0-69.9, adult Z68.44 [address] [place] [address] [id number] Dec, Sciatica of left side M54.32 [place] [id number] [place] [address] [id number] Sep, BMI 60.0-69.9, adult Z68.44 ; Asthma, unspecified asthma severity, unspecified whether complicated, unspecified whether persistent J45.909 ; Other viral agents as the cause of diseases classified elsewhere B97.89 and Acute upper respiratory infection, unspecified J06.[address] [place] [address] [id number] Sep, Type 2 diabetes mellitus without complication E11.9 ; Acute nasopharyngitis J00 ; Mild intermittent asthma with acute exacerbation J45.21 and BMI 60.0-69.9, adult Z68.44 [address]65[address] [id number] Aug, Sciatica of left side M54.32 [place] [address] [place] [address] [id number] Jul, Left lower quadrant pain R10.32 [address] [id number] Jul, test negative Z32.02 [place] [address] [place] [address] [id number] Jul, Left lower quadrant pain R10.32 [place] [address] [place] [address] [id number] Jul, Mild intermittent asthma without complication J45.20 [place] [address] [place] [address] [id number] Jul, Dyspepsia R10.13 ; Comprehensive diabetic foot examination, type 2 DM, encounter for E11.9 ; Pain of upper abdomen R10.10 ; Body mass index (BMI) of 45.0-49.9 in adult Z68.42 and Morbid (severe) obesity due to excess calories E66.01 [place] [address] [place] [address] [id number] Jun, Left upper quadrant pain R10.12 ; Constipation, unspecified constipation type K59.00 ; Plantar fasciitis of right foot M72.2 and Type 2 diabetes mellitus without complication E11.9 [place] [address] [place] [address] [id number] May, Type 2 diabetes mellitus without complication E11.9 ; Dyspepsia R10.13 and Sciatica of left side M54.32 [place] [address] [place] [address] [id number] Jan, Type 2 diabetes mellitus without complication E11.9 ; Dyspepsia R10.13 and Acute cystitis with hematuria N30.[address] [place] [address] [id number] Jan, [place] [id number] [place] [address] [id number] Jan, [place] [address] [place] [address] [id number] Dec, [address] [id number] Dec, 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 and Type 2 diabetes mellitus without complication E11.9 [place] [id number] [place] [address] [id number] Nov, [place] [address] [id number] Oct, [facility] [address] [place] [id number] [place] [address] [id number] Jul, Type 2 diabetes mellitus without complication E11.9 and Bilateral carpal tunnel syndrome G56.03 [facility] [address] [place] [id number] [place] [address] [id number] May, [place] [address] [place] [address] [id number] Mar, Type 2 diabetes mellitus without complication E11.9 ; Essential hypertension, hypertension with unspecified goal I10 and Arthritis M19.[address] [id number] February, Essential hypertension, hypertension with unspecified goal I10 and Type 2 diabetes mellitus without complication E11.9 [place] [address] [place] [address] [id number] February, [address] [id number] February, [facility] [address] [id number] Jan, Encounter for dental examination Z01.20 [place] [address] [address] Jan, [place] [address] [place] [address] [id number] Jan, [address] [id number] Jan, [place] [address] [address] 13 Jan, 2016 [place] [id number] [place] [address] [id number] 12 Jan, 2016 Well woman exam Z01.419 ; Urgency of urination R39.15 ; Urinary incontinence R32 ; Fungal infection of skin B36.9 ; Seasonal allergies J30.2 ; Contraceptive management Z30.9 and Morbid obesity E66.01 [place] [address] [place] [address] [id number] Jan, Type 2 diabetes mellitus without complication E11.9 and Essential hypertension, hypertension with unspecified goal I10 [facility] [address] [id number] [place] [id number] Jan, Type 2 diabetes mellitus without complication E11.9 ; Essential hypertension, hypertension with unspecified goal I10 ; Arthritis M19.90 and Mild intermittent asthma without complication J45.20 IMMUNIZATIONS No Known Immunizations SOCIAL HISTORY Never Assessed REASON FOR VISIT Weight check Karen RN PLAN OF CARE VITAL SIGNS Height 66 in 2017-12-30 Weight 407.6 lbs 2017-12-30 BMI 65.78 kg/m2 2017-12-30 MEDICATIONS Unknown Medications RESULTS No Results PROCEDURES No Known [...] cholecystectomy 12/28/16 Hospitalization History childbirth Hospitalization History [facility] ED- Fever, weakness 02/16/2018
--- OUTSIDE RECORDS SUMMARY | 2019-01-13 12:40 | XMS REPORT ---
Author Author REED PETERSON [facility] Address [address] [place] [address] Care Team Providers Care Photographer'S Model Name Role Phone REED PETERSON Unavailable PROBLEMS Type Condition ICD9-CM Code CJU43-US Code Onset Dates Condition Status SNOMED Code Problem Dyspepsia R10.13 Active 070732430 Problem Constipation, unspecified constipation type K59.00 Active 53336902 Problem Sciatica of left side M54.32 Active 77501864 Problem Pain of right hip joint M25.551 Active 31106282 Problem Mild persistent asthma without complication J45.30 Active 037567896 Problem Comprehensive diabetic foot examination, type 2 DM, encounter for E11.9 Active 14803542 Problem Body mass index (BMI) of 45.0-49.9 in adult Z68.42 Active 459748233 Problem Mild intermittent asthma with acute exacerbation J45.21 Active 432891591 Problem Morbid (severe) obesity due to excess calories E66.01 Active 500992158 Problem Arthritis M19.90 Active 1240103 Problem Essential hypertension, hypertension with unspecified goal I10 Active 60862868 Problem Bilateral carpal tunnel syndrome G56.03 Active 57118453 Problem Type 2 diabetes mellitus without complication E11.9 Active 59763802 Problem 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 Active 08419507 ALLERGIES No Information ENCOUNTERS Encounter Location Date Diagnosis [facility] [address] [facility] [id number] [id number] Apr, [facility] [address] [facility] [place] [id number] [id number] Mar, [address] [id number], [place] [id number] Mar, Type 2 diabetes mellitus without complication E11.9 ; Pain of right hip joint M25.551 ; Mild persistent asthma without complication J45.30 ; Essential hypertension, hypertension with unspecified goal I10 ; Left lower quadrant pain R10.32 ; Dyspepsia R10.13 and BMI 60.0-69.9, adult Z68.44 [place] [id number] [place] [address] [id number] Dec, BMI 60.0-69.9, adult Z68.44 [facility] [id number], [place] [id number] Dec, [place] [id number] [place] [address] [id number] Dec, Type 2 diabetes mellitus without complication E11.9 ; Mild persistent asthma without complication J45.30 ; Essential hypertension, hypertension with unspecified goal I10 ; Acute nasopharyngitis J00 ; Left lower quadrant pain R10.32 ; Dyspepsia R10.13 and BMI 60.0-69.9, adult Z68.44 [address] [place] [address] [id number] Dec, Sciatica of left side M54.32 [place] [address] [place] [address] [id number] Sep, BMI 60.0-69.9, adult Z68.44 ; Asthma, unspecified asthma severity, unspecified whether complicated, unspecified whether persistent J45.909 ; Other viral agents as the cause of diseases classified elsewhere B97.89 and Acute upper respiratory infection, unspecified J06.[address] [place] [address] [id number] Sep, Type 2 diabetes mellitus without complication E11.9 ; Acute nasopharyngitis J00 ; Mild intermittent asthma with acute exacerbation J45.21 and BMI 60.0-69.9, adult Z68.44 [address] [id number] Aug, Sciatica of left side M54.32 [place] [address] [place] [address] [id number] Jul, Left lower quadrant pain R10.32 [address] [id number] Jul, test negative Z32.02 [place] [address] [place] [address] [id number] Jul, Left lower quadrant pain R10.32 [place] [address] [place] [address] [id number] Jul, Mild intermittent asthma without complication J45.20 [place] [address] [place] [address] [id number] Jul, Dyspepsia R10.13 ; Comprehensive diabetic foot examination, type 2 DM, encounter for E11.9 ; Pain of upper abdomen R10.10 ; Body mass index (BMI) of 45.0-49.9 in adult Z68.42 and Morbid (severe) obesity due to excess calories E66.01 [place] [address] [place] [address] [id number] Jun, Left upper quadrant pain R10.12 ; Constipation, unspecified constipation type K59.00 ; Plantar fasciitis of right foot M72.2 and Type 2 diabetes mellitus without complication E11.9 [place] [address] [place] [address] [id number] May, Type 2 diabetes mellitus without complication E11.9 ; Dyspepsia R10.13 and Sciatica of left side M54.32 [place] [address] [place] [address] [id number] Jan, Type 2 diabetes mellitus without complication E11.9 ; Dyspepsia R10.13 and Acute cystitis with hematuria N30.[address] [place] [address] [id number] Jan, [place] [address] [place] [address] [id number] Jan, [place] [address] [place] [address] [id number] Dec, [address] [id number] Dec, 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 and Type 2 diabetes mellitus without complication E11.9 [place] [address] [place] [address] [id number] Nov, [place] [address] [id number] Oct, [facility] [address] [place] [id number] [place] [address] [id number] Jul, Type 2 diabetes mellitus without complication E11.9 and Bilateral carpal tunnel syndrome G56.03 [facility] [address] [place] [id number] [place] [address] [id number] May, [place] [address] [place] [address] [id number] Mar, Type 2 diabetes mellitus without complication E11.9 ; Essential hypertension, hypertension with unspecified goal I10 and Arthritis M19.[address] [id number] February, Essential hypertension, hypertension with unspecified goal I10 and Type 2 diabetes mellitus without complication E11.9 [place] [address] [place] [address] [id number] February, [address] [id number] February, [facility] [address] [id number] Jan, Encounter for dental examination Z01.20 [place] [address] [address] Jan, [place] [id number] [place] [address] [id number] Jan, [address] [id number] Jan, [place] [address] [address] 13 Jan, 2016 [place] [address] [place] [address] [id number] 12 Jan, 2016 Well woman exam Z01.419 ; Urgency of urination R39.15 ; Urinary incontinence R32 ; Fungal infection of skin B36.9 ; Seasonal allergies J30.2 ; Contraceptive management Z30.9 and Morbid obesity E66.01 [place] [address] [place] [address] [id number] Jan, Type 2 diabetes mellitus without complication E11.9 and Essential hypertension, hypertension with unspecified goal I10 [facility] [address] [facility] [place] [id number] [place] [id number] Jan, Type 2 diabetes mellitus without complication E11.9 ; Essential hypertension, hypertension with unspecified goal I10 ; Arthritis M19.90 and Mild intermittent asthma without complication J45.20 IMMUNIZATIONS No Known Immunizations SOCIAL HISTORY Never Assessed REASON FOR VISIT Refill request PLAN OF CARE VITAL SIGNS MEDICATIONS Unknown Medications RESULTS No Results PROCEDURES [...] cholecystectomy 12/28/16 Hospitalization History childbirth Hospitalization History [facility] ED- Fever, weakness 02/16/2018
--- OUTSIDE RECORDS SUMMARY | 2019-01-13 12:40 | XMS REPORT ---
Author Author REED PETERSON [facility] Address [address] [place] [address] Care Team Providers Care Material Handler 2Nd Shift Name Role Phone REED PETERSON Unavailable PROBLEMS Type Condition ICD9-CM Code DHF54-OK Code Onset Dates Condition Status SNOMED Code Problem Dyspepsia R10.13 Active 616584592 Problem Constipation, unspecified constipation type K59.00 Active 31112624 Problem Sciatica of left side M54.32 Active 24355770 Problem Pain of right hip joint M25.551 Active 18890868 Problem Mild persistent asthma without complication J45.30 Active 196741021 Problem Comprehensive diabetic foot examination, type 2 DM, encounter for E11.9 Active 63478890 Problem Body mass index (BMI) of 45.0-49.9 in adult Z68.42 Active 103451354 Problem Mild intermittent asthma with acute exacerbation J45.21 Active 454760781 Problem Morbid (severe) obesity due to excess calories E66.01 Active 952318292 Problem Arthritis M19.90 Active 4132030 Problem Essential hypertension, hypertension with unspecified goal I10 Active 32378585 Problem Bilateral carpal tunnel syndrome G56.03 Active 67002231 Problem Type 2 diabetes mellitus without complication E11.9 Active 32644520 Problem 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 Active 79997519 ALLERGIES No Known Allergies ENCOUNTERS Encounter Location Date Diagnosis [facility] [address] [facility] [id number] [id number] Apr, [facility] [address] [facility] [id number][place] [id number] Mar, [facility] [address] [facility] [id number] [id number] Mar, Type 2 diabetes mellitus without complication E11.9 ; Pain of right hip joint M25.551 ; Mild persistent asthma without complication J45.30 ; Essential hypertension, hypertension with unspecified goal I10 ; Left lower quadrant pain R10.32 ; Dyspepsia R10.13 and BMI 60.0-69.9, adult Z68.44 [place] [id number] [place] [address] [id number] Dec, BMI 60.0-69.9, adult Z68.[address] [place] [address] [id number] Dec, [place] [id number] [place] [address] [id number] Dec, Type 2 diabetes mellitus without complication E11.9 ; Mild persistent asthma without complication J45.30 ; Essential hypertension, hypertension with unspecified goal I10 ; Acute nasopharyngitis J00 ; Left lower quadrant pain R10.32 ; Dyspepsia R10.13 and BMI 60.0-69.9, adult Z68.[address] [place] [address] [id number] Dec, Sciatica of left side M54.32 [place] [id number] [place] [address] [id number] Sep, BMI 60.0-69.9, adult Z68.44 ; Asthma, unspecified asthma severity, unspecified whether complicated, unspecified whether persistent J45.909 ; Other viral agents as the cause of diseases classified elsewhere B97.89 and Acute upper respiratory infection, unspecified J06.[address] [place] [address] [id number] Sep, Type 2 diabetes mellitus without complication E11.9 ; Acute nasopharyngitis J00 ; Mild intermittent asthma with acute exacerbation J45.21 and BMI 60.0-69.9, adult Z68.[address] [place] [address] [id number] Aug, Sciatica of left side M54.32 [address] [place] [address] [id number] Jul, Left lower quadrant pain R10.32 [address] [place] [address] [id number] Jul, test negative Z32.02 [place] [id number] [place] [address] [id number] Jul, Left lower quadrant pain R10.32 [place] [address] [address] [place] [id number] [place] [address] [id number] 09 Jul, 2017 Mild intermittent asthma without complication J45.20 [place] [id number] [place] [address] [id number] Jul, Dyspepsia R10.13 ; Comprehensive diabetic foot examination, type 2 DM, encounter for E11.9 ; Pain of upper abdomen R10.10 ; Body mass index (BMI) of 45.0-49.9 in adult Z68.42 and Morbid (severe) obesity due to excess calories E66.01 [place] [address] [place] [address] [id number] Jun, Left upper quadrant pain R10.12 ; Constipation, unspecified constipation type K59.00 ; Plantar fasciitis of right foot M72.2 and Type 2 diabetes mellitus without complication E11.9 [place] [id number] [place] [address] [id number] May, Type 2 diabetes mellitus without complication E11.9 ; Dyspepsia R10.13 and Sciatica of left side M54.32 [place] [address] [place] [address] [id number] Jan, Type 2 diabetes mellitus without complication E11.9 ; Dyspepsia R10.13 and Acute cystitis with hematuria N30.[address] [place] [address] [id number] Jan, [place] [id number] [place] [address] [id number] Jan, [place] [id number] [place] [address] [id number] Dec, [place] [address] [place] [address] [id number] Dec, 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 and Type 2 diabetes mellitus without complication E11.9 [place] [id number] [place] [address] [id number] Nov, [place] [id number] [place] [address] [id number] Oct, [facility] [address] [place] [id number] [place] [address] [id number] Jul, Type 2 diabetes mellitus without complication E11.9 and Bilateral carpal tunnel syndrome G56.03 [facility] [address] [place] [id number] [place] [address] [id number] May, [place] [id number] [place] [address] [id number] Mar, Type 2 diabetes mellitus without complication E11.9 ; Essential hypertension, hypertension with unspecified goal I10 and Arthritis M19.[address] [id number] February, Essential hypertension, hypertension with unspecified goal I10 and Type 2 diabetes mellitus without complication E11.9 [place] [id number] [place] [address] [id number] February, [address] [id number] February, [facility] [address] [id number] Jan, Encounter for dental examination Z01.20 [place] [address] [id number] Jan, [place] [id number] [place] [address] [id number] Jan, [address] [id number] Jan, [facility] [address] [phone] 13 Jan, 2016 [place] [address] [place] [address] [id number] 12 Jan, 2016 Well woman exam Z01.419 ; Urgency of urination R39.15 ; Urinary incontinence R32 ; Fungal infection of skin B36.9 ; Seasonal allergies J30.2 ; Contraceptive management Z30.9 and Morbid obesity E66.[address] [id number] Jan, Type 2 diabetes mellitus without complication E11.9 and Essential hypertension, hypertension with unspecified goal I10 [facility] [address] [id number] [place] [id number] Jan, Type 2 diabetes mellitus without complication E11.9 ; Essential hypertension, hypertension with unspecified goal I10 ; Arthritis M19.90 and Mild intermittent asthma without complication J45.20 IMMUNIZATIONS No Known Immunizations SOCIAL HISTORY Never Assessed REASON FOR VISIT Diabetes visit Carolee EDWARDS PLAN OF CARE Activity Details Follow Up 3 Months Reason:dm VITAL SIGNS Height 66 in 2017-12-25 Weight 413 lbs 2017-12-25 Temperature 97 degrees Fahrenheit 2017-12-25 Heart Rate 82 bpm 2017-12-25 Respiratory Rate 16 2017-12-25 BMI 66.65 kg/m2 2017-12-25 Blood pressure systolic 122 mmHg 2017-12-25 Blood pressure diastolic 68 mmHg 2017-12-25 MEDICATIONS Medication Instructions Dosage Frequency Start Date End Date Duration Status Lancets - subcutaneously Once a day DX: E11.9 as directed Nov, 30 days Active True Metrix Blood Glucose Test - TEST BLOOD SUGAR ONCE DAILY DIRECTED. Active Zantac 300 MG Orally Once a day 1 tablet at bedtime 24h Jan, 90 days Active Aspirin EC 81 MG TAKE ONE (1) TABLET BY MOUTH DAILY... Active True Metrix Meter - as directed Jun, Active Gabapentin 300 MG Orally Three times a day 1 capsule 8h May, Active Albuterol Sulfate (2.5 MG/3ML) 0.083% Inhalation Three times a day 3 ml as needed 8h Sep, Active Polyethylene Glycol 3350 - Orally Once a day 1 cap 24h Jun, Active Inspiration Nebulizer System & Tubing by inhalation route 3 times a day as directed 8h Sep, Active Metformin HCl 500 MG Orally Twice a day 1 tablet with meals 12h Active Symbicort 160-4.5 MCG/ACT Inhalation Twice a day 2 puffs 12h Dec, Active Nasonex 50 MCG/ACT ADMINISTER (2) TWO SPRAYS INTO EACH NOSTRIL ONCE DAILY. Active Lisinopril 20 mg Orally Once a day 1 tablet 24h Active ProAir HFA 108 (90 Base) MCG/ACT Inhalation every 4 hrs 2 puffs as needed 4h Active Lasix 20 mg Orally Once a day .5-1 tablet take 1 tab qd x 4 d then .5- 1 24h Dec, 30 day(s) Active Lipitor 20 mg Orally Once a day 1 tablet 24h Active RESULTS Name Result Date Reference Range A1C (IN HOUSE) 2017-12-25 A1C IN HOUSE 6.5 4.3 - 5.6 % Previous A1c 6.8 Lot [id number] Exp date 08/25 PROCEDURES Procedure Date Ordered Result Body Site NEBULIZER TREATMENT 2017-12-25 N/A [facility] VISIT ESTABLISHED PATIENT December 25, 2017 GLYCATED HEMOGLOBIN TEST December 25, 2017 NEB/MDI RX INITIAL December 25, 2017 INSTRUCTIONS MEDICATIONS ADMINISTERED No Known Medications [...] cholecystectomy 12/28/16 Hospitalization History childbirth Hospitalization History [facility] ED- Fever, weakness 02/16/2018
--- OUTSIDE RECORDS SUMMARY | 2019-01-13 12:41 | XMS REPORT ---
Author Author REED PETERSON Organization [facility] Address [address] [place] [address] Care Team Providers Care Sock Lining Stitcher Name Role Phone REED PETERSON Unavailable PROBLEMS Type Condition ICD9-CM Code NMB03-NT Code Onset Dates Condition Status SNOMED Code Problem 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 Active 06365543 Problem Sciatica of left side M54.32 Active 45337480 Problem Dyspepsia R10.13 Active 820859793 Problem Type 2 diabetes mellitus without complication E11.9 Active 96777453 Problem Arthritis M19.90 Active 5707440 Problem Essential hypertension, hypertension with unspecified goal I10 Active 59539189 Problem Bilateral carpal tunnel syndrome G56.03 Active 52753020 Problem Mild persistent asthma without complication J45.30 Active 722979883 Problem Mild intermittent asthma with acute exacerbation J45.21 Active 312995649 Problem Body mass index (BMI) of 45.0-49.9 in adult Z68.42 Active 218527985 Problem Constipation, unspecified constipation type K59.00 Active 34446615 Problem Morbid (severe) obesity due to excess calories E66.01 Active 921830613 Problem Comprehensive diabetic foot examination, type 2 DM, encounter for E11.9 Active 29692912 ALLERGIES No Known Allergies ENCOUNTERS Encounter Location Date Diagnosis [facility] [address] [facility] [id number] [id number] Dec, BMI 60.0-69.9, adult Z68.[address] [id number] [id number] Dec, [place] [id number] [place] [address] [id number] Dec, Type 2 diabetes mellitus without complication E11.9 ; Mild persistent asthma without complication J45.30 ; Essential hypertension, hypertension with unspecified goal I10 ; Acute nasopharyngitis J00 ; Left lower quadrant pain R10.32 ; Dyspepsia R10.13 and BMI 60.0-69.9, adult Z68.44 [place] [id number] [place] [address] [id number] Dec, Sciatica of left side M54.32 [facility] [place] [id number] [place] [address] [id number] Sep, 2017 BMI 60.0-69.9, adult Z68.44 ; Asthma, unspecified asthma severity, unspecified whether complicated, unspecified whether persistent J45.909 ; Other viral agents as the cause of diseases classified elsewhere B97.89 and Acute upper respiratory infection, unspecified J06.9 [place] [id number] [place] [address] [id number] Sep, Type 2 diabetes mellitus without complication E11.9 ; Acute nasopharyngitis J00 ; Mild intermittent asthma with acute exacerbation J45.21 and BMI 60.0-69.9, adult Z68.44 [place] [id number] [place] [address] [id number] Aug, Sciatica of left side M54.32 [place] [id number] [place] [address] [id number] Jul, Left lower quadrant pain R10.32 [place] [id number] [place] [address] [id number] Jul, test negative Z32.02 [place] [id number] [place] [address] [id number] Jul, Left lower quadrant pain R10.32 [place] [id number] [place] [address] [id number] Jul, Mild intermittent asthma without complication J45.20 [address] [place] [address] [id number] Jul, Dyspepsia R10.13 ; Comprehensive diabetic foot examination, type 2 DM, encounter for E11.9 ; Pain of upper abdomen R10.10 ; Body mass index (BMI) of 45.0-49.9 in adult Z68.42 and Morbid (severe) obesity due to excess calories E66.01 [place] [id number] [place] [address] [id number] Jun, Left upper quadrant pain R10.12 ; Constipation, unspecified constipation type K59.00 ; Plantar fasciitis of right foot M72.2 and Type 2 diabetes mellitus without complication E11.9 [facility] [address] [place] [id number] [place] [address] [id number] May, Type 2 diabetes mellitus without complication E11.9 ; Dyspepsia R10.13 and Sciatica of left side M54.32 [facility] [address] [place] [id number] [place] [address] [id number] Jan, Type 2 diabetes mellitus without complication E11.9 ; Dyspepsia R10.13 and Acute cystitis with hematuria N30.01 [facility] [address] [place] [id number] [place] [address] [id number] Jan, [facility] [address] [place] [id number] [place] [address] [id number] Jan, [facility] [address] [place] [id number] [place] [address] [id number] Dec, [facility] [address] [place] [id number] [place] [address] [id number] Dec, 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 and Type 2 diabetes mellitus without complication E11.9 [facility] [id number] [place] [address] [id number] Nov, [facility] [address] [place] [id number] [place] [address] [id number] Oct, [facility] [address] [place] [id number] [place] [address] [id number] Jul, Type 2 diabetes mellitus without complication E11.9 and Bilateral carpal tunnel syndrome G56.03 [facility] [address] [place] [id number] [place] [address] [id number] May, [facility] [address] [place] [id number] [place] [address] [id number] Mar, Type 2 diabetes mellitus without complication E11.9 ; Essential hypertension, hypertension with unspecified goal I10 and Arthritis M19.90 [facility] [address] [place] [id number] [place] [address] [id number] February, Essential hypertension, hypertension with unspecified goal I10 and Type 2 diabetes mellitus without complication E11.9 [facility] [id number] [id number] February, [facility] [address] [place] [id number] [place] [address] [id number] February, [facility] [address] [place] [address] [id number] Jan, Encounter for dental examination Z01.20 [facility] [address] [place] [id number] [place] [id number] Jan, [facility] [address] [place] [id number] [place] [address] [id number] Jan, [facility] [address] [place] [id number] [place] [address] [id number] Jan, [facility] [address] [place] [id number] [place] [phone] Jan, [facility] [address] [place] [id number] [place] [address] [id number] Jan, Well woman exam Z01.419 ; Urgency of urination R39.15 ; Urinary incontinence R32 ; Fungal infection of skin B36.9 ; Seasonal allergies J30.2 ; Contraceptive management Z30.9 and Morbid obesity E66.01 [facility] [address] [place] [address] [id number] Jan, Type 2 diabetes mellitus without complication E11.9 and Essential hypertension, hypertension with unspecified goal I10 [facility] [address] [id number] Jan, Type 2 diabetes mellitus without complication E11.9 ; Essential hypertension, hypertension with unspecified goal I10 ; Arthritis M19.90 and Mild intermittent asthma without complication J45.20 IMMUNIZATIONS No Known Immunizations SOCIAL HISTORY Never Assessed REASON FOR VISIT Abdominal Pain and xray follow up Carolee EDWARDS PLAN OF CARE Activity Details Follow Up prn Reason: VITAL SIGNS Height 66 in 2017-07-18 Weight 389.4 lbs 2017-07-18 Temperature 96.4 degrees Fahrenheit 2017-07-18 Heart Rate 92 bpm 2017-07-18 Respiratory Rate 22 2017-07-18 BMI 62.84 kg/m2 2017-07-18 Blood pressure systolic 122 mmHg 2017-07-18 Blood pressure diastolic 68 mmHg 2017-07-18 MEDICATIONS Medication Instructions Dosage Frequency Start Date End Date Duration Status Nasonex 50 MCG/ACT ADMINISTER (2) TWO SPRAYS INTO EACH NOSTRIL ONCE DAILY. Active Lipitor 20 mg Orally Once a day 1 tablet 24h Active Aspirin EC 81 MG TAKE ONE (1) TABLET BY MOUTH DAILY... Active ProAir HFA 108 (90 Base) MCG/ACT Inhalation every 4 hrs 2 puffs as needed 4h Active Lisinopril 20 mg Orally Once a day 1 tablet 24h Active Zantac 300 MG Orally Once a day 1 tablet at bedtime 24h Jan, 90 days Active True Metrix Blood Glucose Test - TEST BLOOD SUGAR ONCE DAILY DIRECTED. Active Metformin HCl 500 MG Orally Twice a day 1 tablet with meals 12h Active Lancets - subcutaneously Once a day DX: E11.9 as directed Nov, 30 days Active Gabapentin 300 MG Orally Three times a day 1 capsule 1 tab qhs x 5 d then bid x 5 d then tid 8h May, Active Polyethylene Glycol 3350 - Orally Once a day 1 cap 24h Jun, Active Diclofenac Sodium 50 mg Orally Three times a day 1 tablet with food or milk 8h May, Active Sprintec 28 0.25-35 MG-MCG Orally Once a day 1 tablet 24h 90 Active True Metrix Meter - as directed Jun, Active RESULTS No Results PROCEDURES Procedure Date Ordered Result Body Site [facility] VISIT ESTABLISHED PATIENT Jul 18, 2017 INSTRUCTIONS MEDICATIONS ADMINISTERED No Known Medications [...]
--- OUTSIDE RECORDS SUMMARY | 2019-01-13 12:41 | XMS REPORT ---
Author Author REED PETERSON Organization [facility] Address [address] [place] [address] Care Team Providers Care Long Lines Operator Name Role Phone REED PETERSON Unavailable PROBLEMS Type Condition ICD9-CM Code XIA71-TI Code Onset Dates Condition Status SNOMED Code Problem 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 Active 11546134 Problem Sciatica of left side M54.32 Active 82376527 Problem Dyspepsia R10.13 Active 697186926 Problem Type 2 diabetes mellitus without complication E11.9 Active 98366155 Problem Arthritis M19.90 Active 1891723 Problem Essential hypertension, hypertension with unspecified goal I10 Active 77358344 Problem Bilateral carpal tunnel syndrome G56.03 Active 48844691 Problem Mild persistent asthma without complication J45.30 Active 033223601 Problem Mild intermittent asthma with acute exacerbation J45.21 Active 241926642 Problem Body mass index (BMI) of 45.0-49.9 in adult Z68.42 Active 908148802 Problem Constipation, unspecified constipation type K59.00 Active 19506272 Problem Morbid (severe) obesity due to excess calories E66.01 Active 151037150 Problem Comprehensive diabetic foot examination, type 2 DM, encounter for E11.9 Active 26874789 ALLERGIES No Information ENCOUNTERS Encounter Location Date Diagnosis [address] [id number] [id number] Dec, BMI 60.0-69.9, adult Z68.[address] [id number] [id number] Dec, [place] [id number] [place] [address] [id number] Dec, Type 2 diabetes mellitus without complication E11.9 ; Mild persistent asthma without complication J45.30 ; Essential hypertension, hypertension with unspecified goal I10 ; Acute nasopharyngitis J00 ; Left lower quadrant pain R10.32 ; Dyspepsia R10.13 and BMI 60.0-69.9, adult Z68.44 [place] [id number] [place] [address] [id number] Dec, Sciatica of left side M54.32 [facility] [address] [id number] 15 Sep, 2017 BMI 60.0-69.9, adult Z68.44 ; Asthma, unspecified asthma severity, unspecified whether complicated, unspecified whether persistent J45.909 ; Other viral agents as the cause of diseases classified elsewhere B97.89 and Acute upper respiratory infection, unspecified J06.9 [place] [id number] [place] [address] [id number] Sep, Type 2 diabetes mellitus without complication E11.9 ; Acute nasopharyngitis J00 ; Mild intermittent asthma with acute exacerbation J45.21 and BMI 60.0-69.9, adult Z68.44 [place] [id number] [place] [address] [id number] Aug, Sciatica of left side M54.32 [place] [id number] [place] [address] [id number] Jul, Left lower quadrant pain R10.[address] [id number] Jul, test negative Z32.02 [place] [id number] [place] [address] [id number] Jul, Left lower quadrant pain R10.32 [place] [id number] [place] [address] [id number] Jul, Mild intermittent asthma without complication J45.20 [place] [id number] [place] [address] [id number] Jul, Dyspepsia R10.13 ; Comprehensive diabetic foot examination, type 2 DM, encounter for E11.9 ; Pain of upper abdomen R10.10 ; Body mass index (BMI) of 45.0-49.9 in adult Z68.42 and Morbid (severe) obesity due to excess calories E66.01 [place] [id number] [place] [address] [id number] Jun, Left upper quadrant pain R10.12 ; Constipation, unspecified constipation type K59.00 ; Plantar fasciitis of right foot M72.2 and Type 2 diabetes mellitus without complication E11.9 [facility] [address] [place] [id number] [place] [address] [id number] May, Type 2 diabetes mellitus without complication E11.9 ; Dyspepsia R10.13 and Sciatica of left side M54.32 [facility] [address] [place] [id number] [place] [address] [id number] Jan, Type 2 diabetes mellitus without complication E11.9 ; Dyspepsia R10.13 and Acute cystitis with hematuria N30.01 [facility] [address] [id number] Jan, [facility] [address] [place] [id number] [place] [address] [id number] Jan, [place] [id number] [place] [address] [id number] Dec, [address] [id number] Dec, 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 and Type 2 diabetes mellitus without complication E11.9 [facility] [id number] [place] [address] [id number] Nov, [place] [address] [place] [id number] [place] [address] [id number] Oct, [facility] [address] [place] [id number] [place] [address] [id number] Jul, Type 2 diabetes mellitus without complication E11.9 and Bilateral carpal tunnel syndrome G56.03 [facility] [address] [place] [id number] [place] [address] [id number] May, [address] [id number] Mar, Type 2 diabetes mellitus without complication E11.9 ; Essential hypertension, hypertension with unspecified goal I10 and Arthritis M19.90 [facility] [address] [place] [id number] [place] [address] [id number] February, Essential hypertension, hypertension with unspecified goal I10 and Type 2 diabetes mellitus without complication E11.9 [facility] [address] [id number] February, [place] [id number] [place] [address] [id number] February, [facility] [address] [id number] Jan, Encounter for dental examination Z01.20 [facility] [address] [place] [id number] [place] [phone] Jan, [place] [id number] [place] [address] [id number] Jan, [place] [id number] [place] [address] [id number] Jan, [facility] [address] [id number] [place] [phone] Jan, [facility] [address] [place] [id number] [place] [address] [id number] Jan, Well woman exam Z01.419 ; Urgency of urination R39.15 ; Urinary incontinence R32 ; Fungal infection of skin B36.9 ; Seasonal allergies J30.2 ; Contraceptive management Z30.9 and Morbid obesity E66.01 [address] [place] [address] [id number] Jan, Type 2 diabetes mellitus without complication E11.9 and Essential hypertension, hypertension with unspecified goal I10 [address] [place] [address] [id number] Jan, Type 2 diabetes mellitus without complication [...]
--- OUTSIDE RECORDS SUMMARY | 2019-01-13 12:42 | XMS REPORT ---
Author Author RAINER CASTRO Organization [facility] Address [address] [place] [address] Care Team Providers Care Wilderness Guide Name Role Phone RAINER CASTRO Unavailable PROBLEMS Type Condition ICD9-CM Code ICQ61-EQ Code Onset Dates Condition Status SNOMED Code Problem 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 Active 89369867 Problem Sciatica of left side M54.32 Active 42275324 Problem Dyspepsia R10.13 Active 292468351 Problem Type 2 diabetes mellitus without complication E11.9 Active 58182278 Problem Arthritis M19.90 Active 6139535 Problem Essential hypertension, hypertension with unspecified goal I10 Active 61630799 Problem Bilateral carpal tunnel syndrome G56.03 Active 16231267 Problem Mild persistent asthma without complication J45.30 Active 054636418 Problem Mild intermittent asthma with acute exacerbation J45.21 Active 135812263 Problem Body mass index (BMI) of 45.0-49.9 in adult Z68.42 Active 940609230 Problem Constipation, unspecified constipation type K59.00 Active 93498882 Problem Morbid (severe) obesity due to excess calories E66.01 Active 091665705 Problem Comprehensive diabetic foot examination, type 2 DM, encounter for E11.9 Active 33387060 ALLERGIES No Known Allergies ENCOUNTERS Encounter Location Date Diagnosis [facility] [address] [id number] [id number] Mar, [facility] [address] [facility] [id number] [place] [id number] Dec, BMI 60.0-69.9, adult Z68.44 [facility] [address] [id number] [place] [id number] Dec, [facility] [address] [facility] [id number] [place] [id number] Dec, Type 2 diabetes mellitus without complication E11.9 ; Mild persistent asthma without complication J45.30 ; Essential hypertension, hypertension with unspecified goal I10 ; Acute nasopharyngitis J00 ; Left lower quadrant pain R10.32 ; Dyspepsia R10.13 and BMI 60.0-69.9, adult Z68.44 [place] [id number] [place] [address] [id number] Dec, Sciatica of left side M54.[address] [id number] Sep, BMI 60.0-69.9, adult Z68.44 ; Asthma, unspecified asthma severity, unspecified whether complicated, unspecified whether persistent J45.909 ; Other viral agents as the cause of diseases classified elsewhere B97.89 and Acute upper respiratory infection, unspecified J06.[address] [id number] Sep, Type 2 diabetes mellitus without complication E11.9 ; Acute nasopharyngitis J00 ; Mild intermittent asthma with acute exacerbation J45.21 and BMI 60.0-69.9, adult Z68.44 [place] [id number] [place] [address] [id number] Aug, Sciatica of left side M54.32 [place] [id number] [place] [address] [id number] Jul, Left lower quadrant pain R10.[address] [id number] Jul, test negative Z32.02 [place] [id number] [place] [address] [id number] Jul, Left lower quadrant pain R10.32 [place] [id number] [place] [address] [id number] Jul, Mild intermittent asthma without complication J45.20 [place] [id number] [place] [address] [id number] Jul, Dyspepsia R10.13 ; Comprehensive diabetic foot examination, type 2 DM, encounter for E11.9 ; Pain of upper abdomen R10.10 ; Body mass index (BMI) of 45.0-49.9 in adult Z68.42 and Morbid (severe) obesity due to excess calories E66.01 [facility] [address] [place] [id number] [place] [address] [id number] Jun, Left upper quadrant pain R10.12 ; Constipation, unspecified constipation type K59.00 ; Plantar fasciitis of right foot M72.2 and Type 2 diabetes mellitus without complication E11.9 [facility] [address] [place] [id number] [place] [address] [id number] May, Type 2 diabetes mellitus without complication E11.9 ; Dyspepsia R10.13 and Sciatica of left side M54.32 [facility] [address] [place] [id number] [place] [address] [id number] Jan, Type 2 diabetes mellitus without complication E11.9 ; Dyspepsia R10.13 and Acute cystitis with hematuria N30.01 [facility] [address] [place] [id number] [place] [address] [id number] Jan, [facility] [address] [id number] Jan, [facility] [address] [place] [id number] [place] [address] [id number] Dec, [facility] [address] [id number] Dec, 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 and Type 2 diabetes mellitus without complication E11.9 [facility] [address] [place] [id number] [place] [address] [id number] Nov, [facility] [address] [place] [id number] [place] [address] [id number] Oct, [facility] [address] [place] [id number] [place] [address] [id number] Jul, Type 2 diabetes mellitus without complication E11.9 and Bilateral carpal tunnel syndrome G56.03 [facility] [id number] [place] [address] [id number] May, [facility] [address] [place] [id number] [place] [address] [id number] Mar, Type 2 diabetes mellitus without complication E11.9 ; Essential hypertension, hypertension with unspecified goal I10 and Arthritis M19.90 [facility] [address] [place] [address] [id number] February, Essential hypertension, hypertension with unspecified goal I10 and Type 2 diabetes mellitus without complication E11.9 [facility] [address] [place] [id number] [place] [address] [id number] February, [facility] [address] [place] [id number] [place] [address] [id number] February, [facility] [address] [id number] Jan, Encounter for dental examination Z01.20 [facility] [address] [phone] Jan, [place] [id number] [place] [address] [id number] Jan, [place] [id number] [place] [address] [id number] Jan, [facility] [address] [phone] Jan, [facility] [address] [place] [id number] [place] [address] [id number] Jan, Well woman exam Z01.419 ; Urgency of urination R39.15 ; Urinary incontinence R32 ; Fungal infection of skin B36.9 ; Seasonal allergies J30.2 ; Contraceptive management Z30.9 and Morbid obesity E66.01 [place] [id number] [place] [address] [id number] Jan, Type 2 diabetes mellitus without complication E11.9 and Essential hypertension, hypertension with unspecified goal I10 [place] [id number] [place] [address] [id number] Jan, Type 2 diabetes mellitus without complication E11.9 ; Essential hypertension, hypertension with unspecified goal I10 ; Arthritis M19.90 and Mild intermittent asthma without complication J45.20 IMMUNIZATIONS No Known Immunizations SOCIAL HISTORY Never Assessed REASON FOR VISIT Cold symptoms, cough, congestion KJones RN PLAN OF CARE Activity Details Follow Up prn Reason: VITAL SIGNS Height 66 in 2017-09-20 Weight 398.0 lbs 2017-09-20 Temperature 97.6 degrees Fahrenheit 2017-09-20 Heart Rate 76 bpm 2017-09-20 Respiratory Rate 20 2017-09-20 Oximetry 98 % 2017-09-20 BMI 64.23 kg/m2 2017-09-20 Blood pressure systolic 124 mmHg 2017-09-20 Blood pressure diastolic 68 mmHg 2017-09-20 MEDICATIONS Medication Instructions Dosage Frequency Start Date [...] a day 1 capsule 8h May, Active Nasonex 50 MCG/ACT ADMINISTER (2) TWO SPRAYS INTO EACH NOSTRIL ONCE DAILY. Active ProAir HFA 108 (90 Base) MCG/ACT Inhalation every 4 hrs 2 puffs as needed 4h Active Lisinopril 20 mg Orally Once a day 1 tablet 24h Active Polyethylene Glycol 3350 - Orally Once a day 1 cap 24h Jun, Active Zantac 300 MG Orally Once a day 1 tablet at bedtime 24h Jan, 90 days Active Zithromax 250 MG Orally Once a day 2 tablets on the first day, then 1 tablet daily for 4 days 24h Sep, Sep, 5 day(s) Active Lancets - subcutaneously Once a day DX: E11.9 as directed Nov, 30 days Active Aspirin EC 81 MG TAKE ONE (1) TABLET BY MOUTH DAILY... Active Inspiration Nebulizer System & Tubing by inhalation route 3 times a day as directed 8h Sep, Active Albuterol Sulfate (2.5 MG/3ML) 0.083% Inhalation Three times a day 3 ml as needed 8h Sep, Active Zithromax Z-Ajit 250 MG Orally Once a day 2 tablets on the first day, then 1 tablet daily for 4 days 24h Sep, Sep, 5 day(s) Active RESULTS No Results PROCEDURES Procedure Date Ordered Result Body Site MEASURE BLOOD OXYGEN LEVEL Sep 20, 2017 [facility] VISIT ESTABLISHED PATIENT Sep 20, 2017 INSTRUCTIONS MEDICATIONS ADMINISTERED No Known Medications [...]
--- OUTSIDE RECORDS SUMMARY | 2019-01-13 12:42 | XMS REPORT ---
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 Active 62935245 Problem Sciatica of left side M54.32 Active 05568288 Problem Dyspepsia R10.13 Active 406329373 Problem Type 2 diabetes mellitus without complication E11.9 Active 80698859 Problem Arthritis M19.90 Active 4728209 Problem Essential hypertension, hypertension with unspecified goal I10 Active 38490616 Problem Bilateral carpal tunnel syndrome G56.03 Active 67425732 Problem Mild persistent asthma without complication J45.30 Active 358989968 Problem Mild intermittent asthma with acute exacerbation J45.21 Active 869906368 Problem Body mass index (BMI) of 45.0-49.9 in adult Z68.42 Active 334690869 Problem Constipation, unspecified constipation type K59.00 Active 88526931 Problem Morbid (severe) obesity due to excess calories E66.01 Active 951317584 Problem Comprehensive diabetic foot examination, type 2 DM, encounter for E11.9 Active 45427274 ALLERGIES No Known Allergies ENCOUNTERS Encounter Location Date Diagnosis [facility] [address] [facility] [id number] [place] [id number] Mar, [facility] [address] [facility] [id number] [place] [id number] Dec, BMI 60.0-69.9, adult Z68.44 [facility] [address] [facility] [id number] [place] [id number] Dec, [facility] [address] [facility] [id number] [place] [id number] Dec, Type 2 diabetes mellitus without complication E11.9 ; Mild persistent asthma without complication J45.30 ; Essential hypertension, hypertension with unspecified goal I10 ; Acute nasopharyngitis J00 ; Left lower quadrant pain R10.32 ; Dyspepsia R10.13 and BMI 60.0-69.9, adult Z68.44 [place] [id number] [place] [id number] Dec, Sciatica of left side M54.[address] [id number] Sep, BMI 60.0-69.9, adult Z68.44 ; Asthma, unspecified asthma severity, unspecified whether complicated, unspecified whether persistent J45.909 ; Other viral agents as the cause of diseases classified elsewhere B97.89 and Acute upper respiratory infection, unspecified J06.[address] [id number] Sep, Type 2 diabetes mellitus without complication E11.9 ; Acute nasopharyngitis J00 ; Mild intermittent asthma with acute exacerbation J45.21 and BMI 60.0-69.9, adult Z68.44 [place] [id number] [place] [id number] Aug, Sciatica of left side M54.[address] [id number] Jul, Left lower quadrant pain R10.[address] [id number] Jul, test negative Z32.[address] [id number] Jul, Left lower quadrant pain R10.32 [place] [id number] [place] [address] [id number] Jul, Mild intermittent asthma without complication J45.20 [place] [id number] [place] [address] [id number] Jul, Dyspepsia R10.13 ; Comprehensive diabetic foot examination, type 2 DM, encounter for E11.9 ; Pain of upper abdomen R10.10 ; Body mass index (BMI) of 45.0-49.9 in adult Z68.42 and Morbid (severe) obesity due to excess calories E66.01 [facility] [id number] [place] [address] [id number] 13 Jun, 2017 Left upper quadrant pain R10.12 ; Constipation, unspecified constipation type K59.00 ; Plantar fasciitis of right foot M72.2 and Type 2 diabetes mellitus without complication E11.9 [facility] [id number] [place] [address] [id number] May, Type 2 diabetes mellitus without complication E11.9 ; Dyspepsia R10.13 and Sciatica of left side M54.32 [facility] [address] [id number] [place] [id number] Jan, Type 2 diabetes mellitus without complication E11.9 ; Dyspepsia R10.13 and Acute cystitis with hematuria N30.01 [facility] [id number] [place] [address] [id number] Jan, [facility] [address] [place] [address] [id number] Jan, [facility] [id number] [place] [address] [id number] Dec, [facility] [id number] [place] [address] [id number] Dec, 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 and Type 2 diabetes mellitus without complication E11.9 [facility] [id number] [place] [address] [id number] Nov, [facility] [id number] [place] [address] [id number] Oct, [facility] [id number] [place] [address] [id number] Jul, Type 2 diabetes mellitus without complication E11.9 and Bilateral carpal tunnel syndrome G56.03 [facility] [address] [id number] [place] [id number] May, [facility] [address] [id number] [place] [id number] Mar, Type 2 diabetes mellitus without complication E11.9 ; Essential hypertension, hypertension with unspecified goal I10 and Arthritis M19.90 [facility] [id number] [place] [id number] February, Essential hypertension, hypertension with unspecified goal I10 and Type 2 diabetes mellitus without complication E11.9 [facility] [id number] [place] [address] [id number] February, [facility] [id number] [place] [address] [id number] February, [facility] [id number] [place] [id number] Jan, Encounter for dental examination Z01.20 [facility] [address] [id number] Jan, [place] [id number] [place] [address] [id number] Jan, [place] [id number] [place] [address] [id number] Jan, [facility] [address] [address] Jan, [facility] [id number] [place] [address] [id number] Jan, Well woman exam Z01.419 ; Urgency of urination R39.15 ; Urinary incontinence R32 ; Fungal infection of skin B36.9 ; Seasonal allergies J30.2 ; Contraceptive management Z30.9 and Morbid obesity E66.01 [place] [id number] [place] [id number] Jan, Type 2 diabetes mellitus without complication E11.9 and Essential hypertension, hypertension with unspecified goal I10 [facility] [address] [place] [id number] Jan, Type 2 diabetes mellitus without complication E11.9 ; Essential hypertension, hypertension with unspecified goal I10 ; Arthritis M19.90 and Mild intermittent asthma without complication J45.20 IMMUNIZATIONS No Known Immunizations SOCIAL HISTORY Never Assessed REASON FOR VISIT Diabetes follow up Karen CUEVAS PLAN OF CARE Activity Details Follow Up 3 Months Reason:dm VITAL SIGNS Height 66 in 2017-09-09 Weight 396.0 lbs 2017-09-09 Temperature 97.9 degrees Fahrenheit 2017-09-09 Heart Rate 74 bpm 2017-09-09 Respiratory Rate 18 2017-09-09 BMI 63.91 kg/m2 2017-09-09 Blood pressure systolic 128 mmHg 2017-09-09 Blood pressure diastolic 78 mmHg 2017-09-09 MEDICATIONS Medication Instructions Dosage Frequency Start Date End Date Duration Status Metformin HCl 500 MG Orally Twice a day 1 tablet with meals 12h Active Nasonex 50 MCG/ACT ADMINISTER (2) TWO SPRAYS INTO EACH NOSTRIL ONCE DAILY. Active Aspirin EC 81 MG TAKE ONE (1) TABLET BY MOUTH DAILY... Active True Metrix Meter - as directed Jun, Active Zantac 300 MG Orally Once a day 1 tablet at bedtime 24h Jan, 90 days Active Polyethylene Glycol 3350 - Orally Once a day 1 cap 24h Jun, Active PredniSONE 10 mg Orally 2 per day 1 tablet with food or milk Sep, Sep, 05 days Active Lancets - subcutaneously Once a day [...] Result Date Reference Range A1C (IN HOUSE) 2017-09-09 A1C IN HOUSE 6.8 4.3 - 5.6 % Previous A1c 6.3 Lot [id number] Exp date 05/25 PROCEDURES Procedure Date Ordered Result Body Site GLYCATED HEMOGLOBIN TEST Sep 09, 2017 [facility] VISIT ESTABLISHED PATIENT Sep 09, 2017 INSTRUCTIONS MEDICATIONS ADMINISTERED No Known Medications [...]
[2019-01-13 12:50] VITALS: BP 140/83
[2019-01-13] MEDS ORDERED: LACTATED RINGERS 1,000 ML IV STA (12:51)
[2019-01-13] MEDS ORDERED: LACTATED RINGERS 1,000 ML IV ONE (12:58)
--- NOTE | 2019-01-13 14:03 | Progress Note-Pre Operative ---
Pre-Operative Progress Note H&P Reviewed The H&P was reviewed, patient examined and no changes noted. Date Seen by Provider: Jan 13, 2019 Time Seen by Provider: 14:02 Date H&P Reviewed: Jan 13, 2019 Time H&P Reviewed: 14:03 Pre-Operative Diagnosis: change in bowel, family hx colon cancer , blood in stool MELODY DE LA FUENTE DO Jan 13, 2019 14:03
[2019-01-13] MEDS ORDERED: PROPOFOL INJECTION 50 ML IV ONE ×2 (14:21→14:31)
[2019-01-13] MEDS ORDERED: MIDAZOLAM 2 MG/2 ML (VERSED) VIAL ONE (14:21)
[2019-01-13] MEDS ORDERED: GLYCOPYRROLATE 0.2 MG/ML (ROBINUL) 2 ML VIAL ONE (14:32)
--- NOTE | 2019-01-13 15:33 | Progress Note-Post Operative ---
Post-Operative Progess Note Surgeon (s)/Small Engine Mechanic (s) Surgeon MELODY DE LA FUENTE DO Small Engine Mechanic: na Pre-Operative Diagnosis change in bowel, family hx colon cancer , blood in stool Post-Operative Diagnosis normal colon Procedure & Operative Findings Date of Procedure 01/13/19 Procedure Performed/Findings colonoscopy Anesthesia Type per second watch sergeant Estimated Blood Loss Estimated blood loss (mL): min Specimens/Packing Specimens Removed na MELODY DE LA FUENTE DO Jan 13, 2019 15:33
--- NOTE | 2019-01-13 15:34 | Discharge Inst-Simple/Standard ---
Discharge Inst-Standard Patient Instructions/Follow Up Plan of Care/Instructions/FU: Need repeat colonoscopy in 5 years. Any issues before that be seen at that time. Activity as Tolerated: Yes Discharge Diet: Regular Diet MELODY DE LA FUENTE DO Jan 13, 2019 15:34
[2019-01-13 15:45] VITALS: BP 100/55
[2019-01-13 16:00] VITALS: BP 103/56
[2019-01-13 16:42] VITALS: BP 103/56
--- NOTE | 2019-01-13 17:28 | OPERATIVE REPORT ---
DATE OF SERVICE: 01/13/2019 PREOPERATIVE DIAGNOSES: Change in bowel habits, family history of colon cancer, blood in stool. POSTOPERATIVE DIAGNOSIS: Normal colon. PROCEDURE: Colonoscopy. SURGEON: Melody San DO ANESTHESIA: Per DAIRY SCIENTIST. ESTIMATED BLOOD LOSS: None. COMPLICATIONS: None. INDICATIONS: The patient is a 43-year-old female who has change in bowel habits, family history of colon cancer and had previous blood in stool. She understands risks and benefits of procedure and wished to proceed with procedure. Consent was signed in the chart. DESCRIPTION OF PROCEDURE: The patient was taken to the endoscopy suite, placed in left lateral recumbent position. Timeout was performed. Digital rectal exam was performed. No palpable polyps, masses or ulcerations. The scope was inserted in the rectum and advanced all the way to the cecum with minimal difficulty. Still fair amount of liquid stool that had to be irrigated and suctioned. Otherwise, prep was fairly adequate. Scope was then slowly retracted back. There were no polyps, masses or ulceration in the cecum, ascending, transverse, descending and sigmoid colon. Once in the rectum, scope was retroflexed noting no other pathology. Scope was returned to its normal position, slowly withdrawn until completely removed. The patient tolerated the procedure well without any complications. She was taken to recovery room in stable condition. RECOMMENDATIONS: The patient will need repeat colonoscopy in 5 years. If she has any issues before that, will be seen at that time. Job ID: [id number] DocumentID: [id number] Dictated Date: 01/13/2019 15:38:47 Market Research Senior Project Manager Date: 01/13/2019 17:27:56 Dictated By: MELODY SAN DO
== END 2019-01-13 16:10 | disposition home or self-care (01) ==
LOC: ENDO 12:36
PROVIDERS: ATTEND Surgery
DX: K92.1 Melena (principal); R19.7 Diarrhea, unspecified; K59.00 Constipation, unspecified; Z80.0 Family history of malignant neoplasm of digestive organs; E11.9 Type 2 diabetes mellitus without complications; I10 Essential (primary) hypertension; E78.00 Pure hypercholesterolemia, unspecified; J45.909 Unspecified asthma, uncomplicated; G47.33 Obstructive sleep apnea (adult) (pediatric); K21.9 Gastro-esophageal reflux disease without esophagitis; E66.01 Morbid (severe) obesity due to excess calories; Z68.44 Body mass index [BMI] 60.0-69.9, adult; Z79.82 Long term (current) use of aspirin; Z79.84 Long term (current) use of oral hypoglycemic drugs; Z79.899 Other long term (current) drug therapy
CPT/HCPCS: 82962; 84703

== ENCOUNTER → 2022-05-22 | Outpatient (CLI) | payer MEDICARE ==
[~2022-05-22] MED LIST changes: +ASPI-1238 PO; -ASPI-983 PO; -LISI-552 PO; +LISI20TA26 PO; -SULF1TAB35 PO; +SULF1TAB38 PO
--- NOTE | 2022-05-22 16:44 | Diagnostic Imaging Report ---
INDICATION: Routine screening. COMPARISON: 12/22/2018. TECHNIQUE: 2D and 3D bilateral screening mammography was performed with CAD. FINDINGS: Scattered fibroglandular densities are identified bilaterally. There are benign calcifications scattered throughout both breasts. No spiculated mass or malignant-appearing microcalcifications are identified. The axillae are unremarkable. IMPRESSION: No mammographic features suspicious for malignancy are identified. ACR BI-RADS Category 2: Benign findings. Result letter will be mailed to the patient. Note: At least 10% of breast cancer is not imaged by mammography. Dictated by: Dictated on workstation # [id number]
== END ==
LOC: RAD 10:37
PROVIDERS: ATTEND Nurse Practitioner Family
DX: Z12.31 Encounter for screening mammogram for malignant neoplasm of breast (principal)
CPT/HCPCS: 77063; 77067

== ENCOUNTER 2023-02-13 06:46 | Outpatient (CLI) | payer MEDICARE, MEDICAID ==
[~2023-02-13] VITALS: Ht 167.6 cm; Wt 136.5 kg
[2023-02-15] MEDS ORDERED: PLEC3TAB2 PO (13:54)
[2023-02-15] MEDS ORDERED: ESOM40CA52 PO (13:54)
== END 2023-02-15 14:07 | disposition home or self-care (01) ==
LOC: PREOP 06:46
PROVIDERS: ATTEND Surgery
DX: Z01.818 Encounter for other preprocedural examination (principal)

== ENCOUNTER 2023-02-20 20:01 | Outpatient (CLI) | payer MEDICARE, MEDICAID ==
[~2023-02-20 20:01] MED LIST changes: +ESOM40CA52 PO; +PLEC3TAB2 PO
== END 2023-02-21 06:46 | disposition home or self-care (01) ==
LOC: SLEEP 20:01
PROVIDERS: ATTEND Nurse Practitioner Family
DX: G47.33 Obstructive sleep apnea (adult) (pediatric) (principal)
CPT/HCPCS: 95810

== ENCOUNTER 2023-02-26 12:51 | Day surgery (SDC) | payer MEDICARE, MEDICAID ==
[~2023-02-26] VITALS: Ht 167.6 cm; Wt 136.5 kg
--- NOTE | 2023-02-26 13:33 | Progress Note-Pre Operative ---
Pre-Operative Progress Note Date H&P Reviewed: February 26, 2023 Time H&P Reviewed: 13:33 History & Physical: H&P Reviewed, Patient Examed, No changes noted Pre-Operative Diagnosis: GERD, altered bowel function MELODY DE LA FUENTE DO February 26, 2023 13:33
[2023-02-26] MEDS ORDERED: LACTATED RINGERS 1,000 ML IV STA (13:35)
[2023-02-26 13:42] VITALS: BP 137/81
[2023-02-26] MEDS ORDERED: HURRICAINE EXT TUBE (BENZOCAINE) XX PRN (13:45)
[2023-02-26] MEDS ORDERED: MIDAZOLAM 2 MG/2 ML (VERSED) VIAL ONE (14:43)
[2023-02-26] MEDS ORDERED: PROPOFOL INJECTION 50 ML IV ONE ×2 (14:43→15:10)
--- NOTE | 2023-02-26 15:13 | Progress Note-Post Operative ---
Post-Operative Progess Note Surgeon (s)/Weatherization Director (s) Surgeon MELODY DE LA FUENTE DO Weatherization Director: na Pre-Operative Diagnosis GERD, altered bowel function Post-Operative Diagnosis hiatal hernia, descending colon polyp Procedure & Operative Findings Date of Procedure 02/26/23 Procedure Performed/Findings egd c biopsy, colonoscopy c hot bx polypectomy x 1 Anesthesia Type per data architect Estimated Blood Loss Estimated blood loss (mL): none Specimens/Packing Specimens Removed antrum, colon polyp MELODY DE LA FUENTE DO February 26, 2023 15:12
--- NOTE | 2023-02-26 15:14 | Discharge Inst-Simple/Standard ---
Discharge Inst-Standard Patient Instructions/Follow Up Plan of Care/Instructions/FU: 2 weeks adin Activity as Tolerated: Yes Discharge Diet: Regular Diet (high fiber) MELODY DE LA FUENTE DO February 26, 2023 15:14
[2023-02-26 15:15] VITALS: BP 101/58
[2023-02-26 15:20] VITALS: BP 101/56
[2023-02-26 15:25] VITALS: BP 107/71
--- NOTE | 2023-02-26 15:40 | Anesthesia-General Post-Op ---
MAC Patient Condition Mental Status/LOC: Same as Preop Cardiovascular: Satisfactory Nausea/Vomiting: Absent Respiratory: Satisfactory Pain: Controlled Complications: Absent Post Op Complications Complications None Follow Up Care/Instructions Patient Instructions None needed. Anesthesiology Discharge Order Discharge Order Patient is doing well, no complaints, stable vital signs, no apparent adverse anesthesia problems. No complications reported per nursing. GAY VELASQUEZ CRNA February 26, 2023 15:40
[2023-02-26 16:15] VITALS: BP 107/71
--- NOTE | 2023-02-26 22:05 | OPERATIVE REPORT ---
DATE OF SERVICE: 02/26/2023 PREOPERATIVE DIAGNOSES: Gastroesophageal reflux disease and altered bowel function. POSTOPERATIVE DIAGNOSES: Hiatal hernia, descending colon polyp. PROCEDURE: EGD with biopsy, colonoscopy with hot biopsy polypectomy x1. SURGEON: Melody San DO ANESTHESIA: Per PULMONOLOGY PHYSICIAN. ESTIMATED BLOOD LOSS: None. COMPLICATIONS: None. INDICATIONS: The patient is a 47-year-old female with altered bowel function and GERD symptoms. She has a history of duodenal switch. She understands risks and benefits of procedure and wished to proceed. Consent was signed in chart. DESCRIPTION OF PROCEDURE: The patient was taken to endoscopy suite, placed in left lateral recumbent position. Timeout was performed. Scope was inserted in the mouth, down the esophagus, into the stomach and through the pylorus into the duodenum, which demonstrated two limbs, which both limbs were scope was placed down. There were no polyps, masses or ulcerations. Scope was slowly retracted back into the stomach where it was further insufflated. Slight erythematous changes in the stomach present, biopsy of the antrum was obtained. Scope was retroflexed noting a hiatal hernia, no other pathology noted. Scope was returned to its normal position, slowly withdrawn until distal esophagus. No polyps, masses or ulcerations. No erythematous changes. Scope was slowly retracted back until completely removed, noting no other pathology. Digital rectal exam was performed. No palpable polyps, masses or ulcerations. Scope was inserted in the rectum, advanced all the way to the cecum with minimal difficulty. Prep was adequate with irrigation and suction. Scope was then slowly retracted back. No polyps, masses or ulcerations in the cecum, ascending, transverse colon. In the descending colon, small polyp was present, which hot polypectomy was performed. Scope was then continuously retracted back. No polyps, masses or ulcerations within the remainder of the descending and sigmoid colon. Once in the rectum, scope was retroflexed noting no other pathology. Scope was returned to its normal position, slowly withdrawn until completely removed. The patient tolerated the procedure well without complications, taken to recovery in stable condition. RECOMMENDATIONS: The patient will need repeat colonoscopy in 5 years, any issues before that, be seen at that time. The patient with GERD symptoms, hiatal hernia, we will continue on current medications. Would consider switching medications depending up on pathology results and how her symptoms are doing. Would also consider dietitian due to duodenal switch. Job ID: [id number] DocumentID: [id number] Dictated Date: 02/26/2023 15:17:32 Cloth Baler Date: 02/26/2023 22:03:00 Dictated By: MELODY SAN DO
== END 2023-02-26 16:15 | disposition home or self-care (01) ==
LOC: ENDO 12:51
PROVIDERS: ATTEND Surgery
DX: D12.4 Benign neoplasm of descending colon (principal); K31.89 Other diseases of stomach and duodenum; K44.9 Diaphragmatic hernia without obstruction or gangrene; K21.00 Gastro-esophageal reflux disease with esophagitis, without bleeding; K43.2 Incisional hernia without obstruction or gangrene; Z98.0 Intestinal bypass and anastomosis status; Z98.84 Bariatric surgery status; F17.290 Nicotine dependence, other tobacco product, uncomplicated; E66.01 Morbid (severe) obesity due to excess calories; Z68.42 Body mass index [BMI] 45.0-49.9, adult
CPT/HCPCS: 84703